=== PATIENT | female | born 1960 | race Caucasian/White ===

== ENCOUNTER 2016-03-05 09:40 | Inpatient (IN) | payer OTHER ==
[~2016-03-05] VITALS: Ht 149.9 cm; Wt 80.1 kg
[~2016-03-05 09:40] MED LIST: ADV250INH INH; ALDA25TA2 PO; K-TA10TA2 PO; KEFL500C7 PO; LACT20EL PO; LASI20TA PO; MECL-68 PO; MICA40TA PO; MOME50SP; NADO20TA PO; ONDA1TAB15 PO; PANT40TA2 PO; PATA2.5S OP; SING10TA32 PO; XIFA550T PO; ZINC220C3 PO; ZYRT10CA PO; magnesium oxide
[2016-03-05] MEDS ORDERED: ASPIRIN 81 MG CHEW TABLET As Ordered ONE (09:49)
[2016-03-05] MEDS ORDERED: ADENOSINE 6MG/2ML INJECTION (J0153) As Ordered ONE ×2 (10:05)
[2016-03-05 10:11] LABS: BASO % 0.6 % (0.0-1.0); EOS # 0.1 K/mm3 (0.0-0.50); EOS % 0.7 % (0.0-3.0); LARGE UNSTAINED CELL # 0.1 K/mm3 (0.0-0.4); LARGE UNSTAINED CELL % 1.3 % (0.0-4.0); LYMPH % 22.9 % (24.0-44.0); MEAN CORPUSCULAR HEMOGLOBIN 29.2 pg (27.0-33.0); MEAN CORPUSCULAR HGB CONC 31.8 g/dl (32.0-36.5); MEAN CORPUSCULAR VOLUME 91.8 fl (80.0-96.0); MONO # 0.2 K/mm3 (0.0-0.8); MONO % 2.5 % (0.0-5.0); NEUTROPHILS # 6.1 K/mm3 (1.8-7.7); NEUTROPHILS % 71.9 % (36.0-66.0); PLATELET COUNT, AUTOMATED 119 k/mm3 (150-450); WHITE BLOOD COUNT 8.5 K/mm3 (4.0-10.0)
[2016-03-05 10:37] LABS: ANION GAP 10 MEQ/L (8-16); BLOOD UREA NITROGEN 22 MG/DL (7-18); CALCIUM LEVEL 8.9 MG/DL (8.5-10.1); CARBON DIOXIDE LEVEL 26 MEQ/L (21-32); CHLORIDE LEVEL 106 MEQ/L (98-107); CREATININE FOR GFR 1.05 MG/DL (0.55-1.02); GLOMERULAR FILTRATION RATE 57.7 (>51); GLUCOSE, FASTING 164 MG/DL (70-105); POTASSIUM SERUM 4.4 MEQ/L (3.5-5.1); SODIUM LEVEL 142 MEQ/L (136-145)
[2016-03-05] MEDS ORDERED: NADO40TA PO (13:48)
[2016-03-05] MEDS ORDERED: PROA1AER INH (13:48)
[2016-03-05] MEDS ORDERED: PANT40TA2 PO (13:48)
[2016-03-05] MEDS ORDERED: CALC1TAB30 PO (13:48)
[2016-03-05] MEDS ORDERED: SYMB16INH INH (13:48)
[2016-03-05] MEDS ORDERED: SPIR50TA2 PO (13:49)
[2016-03-05] MEDS ORDERED: PRED5TA PO (13:49)
[2016-03-05] MEDS ORDERED: ALBUTEROL 90 MCG/ACT 8GM HFA INHALER INH PRN (14:00)
[2016-03-05] MEDS: FUROSEMIDE 20 MG TAB PO SCH (17:48)
[2016-03-05] MEDS: ENOXAPARIN 40 MG/0.4 ML SYRINGE (J1650) SC SCH (17:48)
[2016-03-05] MEDS: predniSONE 5 MG TAB PO SCH (17:48)
[2016-03-05 20:00] VITALS: BP 118/62
[2016-03-05] MEDS: SYMBICORT 160/4.5MCG INHALER 6GM INH SCH (20:00)
[2016-03-05] MEDS: rifAXIMin 550 MG TAB (XIFAXAN) PO SCH (20:27)
[2016-03-05] MEDS: MONTELUKAST 10 MG TAB PO SCH (20:28)
[2016-03-05] MEDS: NADOLOL 20MG TABLET PO SCH (20:28)
[2016-03-06] VITALS (9 sets, daily range): BP systolic 100–120; BP diastolic 59–70; PULSE 79
[2016-03-06 07:15] LABS: ANION GAP 11 MEQ/L (8-16); BLOOD UREA NITROGEN 17 MG/DL (7-18); CALCIUM LEVEL 7.8 MG/DL (8.5-10.1); CARBON DIOXIDE LEVEL 20 MEQ/L (21-32); CHLORIDE LEVEL 108 MEQ/L (98-107); GLOMERULAR FILTRATION RATE > 60.0 (>51); GLUCOSE, FASTING 113 MG/DL (70-105); POTASSIUM SERUM 4.1 MEQ/L (3.5-5.1); SODIUM LEVEL 139 MEQ/L (136-145)
[2016-03-06 07:33] LABS: MEAN CORPUSCULAR HEMOGLOBIN 29.2 pg (27.0-33.0); MEAN CORPUSCULAR HGB CONC 32.1 g/dl (32.0-36.5); MEAN CORPUSCULAR VOLUME 90.8 fl (80.0-96.0); WHITE BLOOD COUNT 4.7 K/mm3 (4.0-10.0)
[2016-03-06] MEDS: SYMBICORT 160/4.5MCG INHALER 6GM INH SCH ×2 (08:35→19:29)
[2016-03-06] MEDS ORDERED: predniSONE 5 MG TAB As Ordered ONE (08:58)
[2016-03-06] MEDS ORDERED: PANTOPRAZOLE 40MG TAB (PROTONIX) As Ordered ONE (08:58)
[2016-03-06] MEDS ORDERED: FUROSEMIDE 20 MG TAB As Ordered ONE (08:58)
[2016-03-06] MEDS: PANTOPRAZOLE 40MG TAB (PROTONIX) PO SCH (09:12)
[2016-03-06] MEDS ORDERED: ENOXAPARIN 40 MG/0.4 ML SYRINGE (J1650) As Ordered ONE (09:12)
[2016-03-06] MEDS: ENOXAPARIN 40 MG/0.4 ML SYRINGE (J1650) SC SCH (09:13)
[2016-03-06] MEDS: SPIRONOLACTONE 50 MG TAB PO SCH (09:13)
[2016-03-06] MEDS: predniSONE 5 MG TAB PO SCH (09:13)
[2016-03-06] MEDS: FUROSEMIDE 20 MG TAB PO SCH (09:13)
[2016-03-06] MEDS: rifAXIMin 550 MG TAB (XIFAXAN) PO SCH ×2 (09:13→20:30)
--- NOTE | 2016-03-06 14:48 | EDDOCDS ---
Nurse's Notes [facility] Name: France Zafar Age: 56 yrs Sex: Female : 1960 Arrival Date: 03/05/2016 Time: 09:40 Bed Admit Hold Private MD: Slava [place] [facility] [place] Diagnosis: Chest pain, unspecified Presentation: 03/05 09:48 Presenting complaint: Patient states: chest pain began around 0600. Patient states has hs1 history of heart murmur. Denies ever knowing if in A-fib. Aspirin was not taken prior to arrival. Adult Sepsis Screening: The patient does not have new or worsening altered mentation. Patient's respiratory rate is less than 22. Systolic blood pressure is greater than 100. Patient has a qSOFA score of 0- Negative Sepsis Screen. Suicide/Homicide risk assessment- the patient denies having any suicidal and/or homicidal ideations and does not present with any other emotional, behavioral or mental health complaints. Status: Patient is not a administrative services assistant or dependent. Transition of care: patient was not received from another setting of care. 09:48 Acuity: CHRISTIANNE Level 2 hs1 09:48 Method Of Arrival: Walkin/Carried/Asstd hs1 09:48 Red Flag criteria, patient assessed and taken directly to a bed. hs1 Triage Assessment: 09:50 General: Appears in no apparent distress, well nourished, well groomed, Behavior is ead appropriate for age, cooperative. Pain: Location: chest Pain currently is 7 out of 10 on a pain scale. At worst was 10 out of 10 on a pain scale. Pain: Quality of pain is described as heavy. HIV screening NA for this visit Offered previously. Neurological: Level of Consciousness is awake, alert, Oriented to person, place, time. Cardiovascular: Chest pain is described as Pain is 7 out of 10 on a pain scale. radiates Does not radiate. episodes are continuous began 4 hours prior to arrival. Cardiovascular: Reports palpitations. Respiratory: Airway is patent Respiratory effort is even, unlabored. Derm: Skin is pink, warm & dry. Historical: - Allergies: SULFA (SULFONAMIDES); - Home Meds: 1. nadolol 40 mg oral tab 1 tab once daily (Last dose: 03/04/2016 21:00) 2. furosemide 20 mg Oral tab 1 tab once daily 3. rifaximin 550 mg oral tab 1 tab 2 times per day 4. montelukast 10 mg oral tab 1 tab once daily 5. spironolactone 25 mg Oral tab 1 tab once daily 6. Symbicort 160-4.5 mcg/actuation inhalation HFAA 2 puffs 2 times per day 7. pantoprazole 40 mg oral grps 1 packet once daily 8. ProAir HFA 90 mcg/actuation inhalation HFAA 1 puff every 4 hours 9. prednisone 20 mg Oral tab once daily 10. azathioprine 50 mg Oral tab once daily - PMHx: espohageal varicies; GERD; Asthma; Hepatitis C; - PSHx: Tubal ligation; 5 liver biopsies; Tonsillectomy; parencetesis; - Social history: Smoking status: Patient states was never smoker of tobacco. No barriers to communication noted, The patient speaks fluent Lao, Speaks appropriately for age, Smoking status: . - Family history: Not pertinent. - : The pt / caregiver states he / she is not on anticoagulants. Home medication list is obtained from the patient, family members. - Exposure Risk Screening:: None identified. Assessment: 10:20 Reassessment: Patient states feeling better. Patient states symptoms have improved. ead General: Appears in no apparent distress, comfortable, Behavior is appropriate for age, cooperative. Pain: Pain currently is 2 out of 10 on a pain scale. Cardiovascular: Rhythm is regular Denies palpitations. Derm: Skin is pink, warm & dry. 11:30 General: Appears in no apparent distress, comfortable, Behavior is appropriate for age, ead cooperative, pleasant. Pain: Denies pain. Neurological: No deficits noted. Neurological: Denies dizziness. Cardiovascular: Capillary refill < 3 seconds Rhythm is sinus rhythm Chest pain is denied. Cardiovascular: Denies palpitations. Respiratory: Denies shortness of breath. Derm: Skin is pink, warm & dry. 12:30 General: Appears in no apparent distress, comfortable, Behavior is appropriate for age, ead cooperative, pleasant. Respiratory: Airway is patent Respiratory effort is even, unlabored. Derm: Skin is pink, warm & dry. 13:30 General: Appears in no apparent distress, to be sleeping. Cardiovascular: Rhythm is ead sinus rhythm. Respiratory: Airway is patent Respiratory effort is even, unlabored. 14:38 General: Appears in no apparent distress, comfortable, Behavior is appropriate for age, ead cooperative, pt ambulated to bathroom without difficulty. updated of bed status for hospitalization. . Pain: Denies pain. Cardiovascular: Rhythm is sinus rhythm. Respiratory: Airway is patent Respiratory effort is even, unlabored. Derm: Skin is pink, warm & dry. 16:00 General: Appears in no apparent distress, comfortable, Behavior is appropriate for age, ead cooperative. Neurological: No deficits noted. Cardiovascular: Rhythm is sinus rhythm. Respiratory: Airway is patent Respiratory effort is even, unlabored. Derm: Skin is pink, warm & dry. 17:50 General: Appears in no apparent distress, Behavior is appropriate for age, cooperative. pml Pain: Denies pain. Neurological: Level of Consciousness is awake, alert, Oriented to person, place, time. Cardiovascular: Capillary refill < 3 seconds Rhythm is sinus rhythm No ectopy. Respiratory: Airway is patent Respiratory effort is even, unlabored. GI: Abdomen is non- distended obese. Derm: Skin is pink, warm & dry. Vital Signs: 09:44 BP 84 / 65; Pulse 148; Resp 22; Pulse Ox 92% on R/A; Weight 78.93 kg (R); Height 4 ft. elp 11 in. (149.86 cm) (R); 10:10 BP 93 / 63 (auto/); ead 10:10 Pulse 144 MON; Resp 16; Pulse Ox 95% on R/A; ead 10:13 Pulse 144 MON; Pulse Ox 96% ; ead 10:14 BP 94 / 61 (auto/); ead 10:14 Pulse 144 MON; Pulse Ox 97% ; ead 10:15 Pulse 87 MON; Pulse Ox 98% ; ead 10:16 Pulse 83 MON; Pulse Ox 98% ; ead 11:16 Pulse 76 MON; Resp 16; Pulse Ox 96% on R/A; ead 11:37 Pulse 72 MON; Pulse Ox 95% ; ead 11:40 BP 112 / 70 (auto/); ead 11:40 Pulse 72 MON; Pulse Ox 94% ; ead 12:00 BP 109 / 64 (auto/); ead 12:00 Pulse 72 MON; Pulse Ox 96% ; ead 12:20 BP 119 / 65 (auto/); ead 12:20 Pulse 72 MON; Pulse Ox 95% ; ead 13:02 Pulse 71 MON; Pulse Ox 97% ; ead 13:32 Pulse 71 MON; Pulse Ox 96% ; ead 13:56 Pulse 70 MON; Pulse Ox 96% ; ead 14:33 BP 139 / 60 (auto/); ead 14:37 Pulse 72 MON; Pulse Ox 97% ; ead 15:00 BP 118 / 67 (auto/); ead 15:00 Pulse Ox 95% ; ead 15:30 BP 90 / 54 (auto/); ead 15:30 Pulse 80 MON; Resp 18; Pulse Ox 96% on R/A; ead 15:34 BP 90 / 53 (auto/); ead 15:34 Pulse Ox 95% ; ead 15:45 BP 99 / 62 (auto/); ead 15:45 Pulse 74 MON; Pulse Ox 95% ; ead 16:00 BP 103 / 53 (auto/); ead 16:02 Pulse 75 MON; Resp 16; Pulse Ox 95% on R/A; ead 16:15 BP 107 / 58 (auto/); dls 16:15 Pulse 73 MON; Pulse Ox 95% ; dls 16:30 BP 111 / 56 (auto/); dls 16:30 Pulse 73 MON; Pulse Ox 95% ; dls 16:45 BP 105 / 58 (auto/); dls 16:45 Pulse 71 MON; Pulse Ox 96% ; dls 17:42 BP 110 / 59 (auto/); pml 17:44 Pulse 70 MON; Pulse Ox 95% ; pml 09:44 Body Mass Index 35.14 (78.93 kg, 149.86 cm) elp Vitals: 09:44 Log In Time: March 05, 2016 at 09:42. RN notified that patient meets Red Flag elp criteria. ED Course: 09:43 Patient visited by Evette Fink PCA. elp 09:43 Patient moved to Waiting elp 09:44 Brook Vasquez,LUDWIN is Primary Nurse. elp 09:44 MICHAEL Pedersen is Private Physician. elp 09:44 Patient visited by Evette Fink PCA. elp 09:44 Patient moved to 3 elp 09:45 Chey Keene MD is Attending Physician. fg 09:45 Patient visited by Chey Keene MD. fg 09:49 Triage Initiated hs1 09:54 EKG done. (by ED staff). Reviewed by Chey Keene MD. rn1 10:03 B-Type Natiuretic Peptide Sent. ead 10:03 Troponin Sent. ead 10:03 Cardiac Injury Profile Sent. ead 10:03 CBC with Diff Sent. ead 10:03 Basic Metabolic Profile Sent. ead 10:13 [facility] Payment Agreement was scanned into [employer] and attached to record. lg 10:17 EKG done. (by ED staff). Reviewed by Chey Keene MD. jrd 10:26 Patient visited by Brook Vasquez,RN. ead 11:38 Patient visited by Brook Vasquez,RN. ead 12:12 EKG done. (by ED staff). Reviewed by Chey Keene MD. rn1 12:24 Patient visited by Brook Vasquez,LUDWIN. ead 12:33 Patient visited by Brook Vasquez,LUDWIN. ead 12:33 Troponin Sent. ead 12:33 Cardiac Injury Profile Sent. ead 13:30 Prachi Devi is Hospitalizing Provider. fg 16:55 Patient moved to 19 dls 17:44 T-Sheet-- Draft Copy was scanned into [employer] and attached to record. klr 17:52 Patient visited by Massiel Moon,LUDWIN. pml 19:15 Patient moved to Admit Hold [facility]1 03/06 02:54 Primary Nurse role handed off by Brook Vasquez,LUDWIN parker 12:49 Patient visited by Liz Granados PCA. bnb 12:49 Diet: Patient given regular meal. Tolerated well. bnb Administered Medications: 03/05 10:12 Drug: Adenosine 6 mg [adenosine 3 mg/mL intravenous solution (2 mL)] Route: IVP; Site: ead right antecubital; 10:15 Follow up: Response: Cardiac Rhythm changed; No Adverse Reaction ead 10:19 Drug: NS 0.9% 1000 ml [sodium chloride 0.9 % intravenous solution] Route: IV; Rate: ead bolus; Site: right antecubital; 10:21 Not Given (Patient Refused): Aspirin Chewable Tablet 324 mg PO once ead 10:22 Not Given (pt responded to first dose, second dose not needed): Adenosine 12 mg IVP onceead Order Results: Lab Order: B-Type Natiuretic Peptide; SPEC'M 03/05/16 10:00 Test: BRAIN NATRIURETIC PEPTIDE; Value: 56.4; Range: <100; Units: PG/ML; Status: F Lab Order: Basic Metabolic Profile; SPEC'03/05/16 09:59 Test: GLUCOSE, FASTING; Value: 164; Range: 70-105; Abnormal: Above high normal; Units: MG/DL; Status: F Test: BLOOD UREA NITROGEN; Value: 22; Range: 7-18; Abnormal: Above high normal; Units: MG/DL; Status: F Test: CREATININE FOR GFR; Value: 1.05; Range: 0.55-1.02; Abnormal: Above high normal; Units: MG/DL; Status: F Test: GLOMERULAR FILTRATION RATE; Value: 57.7; Range: >51; Status: F Test: SODIUM LEVEL; Value: 142; Range: 136-145; Units: MEQ/L; Status: F Test: POTASSIUM SERUM; Value: 4.4; Range: 3.5-5.1; Units: MEQ/L; Status: F Test: CHLORIDE LEVEL; Value: 106; Range: 98-107; Units: MEQ/L; Status: F Test: CARBON DIOXIDE LEVEL; Value: 26; Range: 21-32; Units: MEQ/L; Status: F Test: ANION GAP; Value: 10; Range: 8-16; Units: MEQ/L; Status: F Test: CALCIUM LEVEL; Value: 8.9; Range: 8.5-10.1; Units: MG/DL; Status: F Test Note: ; Units are mL/min/1.73 m2 Chronic Kidney Disease Staging per NKF: Stage I & II GFR >=60 Normal to Mildly Decreased Stage III GFR 30-59 Moderately Decreased Stage IV GFR 15-29 Severely Decreased Stage V GFR <15 Very Little GFR Left ESRD GFR <15 on BREWERY [employer]ER Lab Order: CBC with Diff; SPEC'03/05/16 10:00 Test: WHITE BLOOD COUNT; Value: 8.5; Range: 4.0-10.0; Units: K/mm3; Status: F Test: RED BLOOD COUNT; Value: 3.90; Range: 4.00-5.40; Abnormal: Below low normal; Units: M/mm3; Status: F Test: HEMOGLOBIN; Value: 11.4; Range: 12.0-16.0; Abnormal: Below low normal; Units: g/dl; Status: F Test: HEMATOCRIT; Value: 35.8; Range: 36.0-47.0; Abnormal: Below low normal; Units: %; Status: F Test: MEAN CORPUSCULAR VOLUME; Value: 91.8; Range: 80.0-96.0; Units: fl; Status: F Test: MEAN CORPUSCULAR HEMOGLOBIN; Value: 29.2; Range: 27.0-33.0; Units: pg; Status: F Test: MEAN CORPUSCULAR HGB CONC; Value: 31.8; Range: 32.0-36.5; Abnormal: Below low normal; Units: g/dl; Status: F Test: RED CELL DISTRIBUTION WIDTH; Value: 21.0; Range: 11.5-14.5; Abnormal: Above high normal; Units: %; Status: F Test: PLATELET COUNT, AUTOMATED; Value: 119; Range: 150-450; Abnormal: Below low normal; Units: k/mm3; Status: F Test: NEUTROPHILS %; Value: 71.9; Range: 36.0-66.0; Abnormal: Above high normal; Units: %; Status: F Test: LYMPH %; Value: 22.9; Range: 24.0-44.0; Abnormal: Below low normal; Units: %; Status: F Test: MONO %; Value: 2.5; Range: 0.0-5.0; Units: %; Status: F Test: EOS %; Value: 0.7; Range: 0.0-3.0; Units: %; Status: F Test: BASO %; Value: 0.6; Range: 0.0-1.0; Units: %; Status: F Test: LARGE UNSTAINED CELL %; Value: 1.3; Range: 0.0-4.0; Units: %; Status: F Test: NEUTROPHILS #; Value: 6.1; Range: 1.8-7.7; Units: K/mm3; Status: F Test: LYMPH #; Value: 2.0; Range: 1.5-4.5; Units: K/mm3; Status: F Test: MONO #; Value: 0.2; Range: 0.0-0.8; Units: K/mm3; Status: F Test: EOS #; Value: 0.1; Range: 0.0-0.50; Units: K/mm3; Status: F Test: BASO #; Value: 0.0; Range: 0.0-0.2; Units: K/mm3; Status: F Test: LARGE UNSTAINED CELL #; Value: 0.1; Range: 0.0-0.4; Units: K/mm3; Status: F Lab Order: Cardiac Injury Profile; [facility] 03/05/16 09:59 Test: CPK CREATINE PHOSPHOKINASE; Value: 96; Range: 26-192; Units: U/L; Status: F Test: CK-MB VALUE MASS; Value: 1.2; Range: 0.0-3.6; Units: NG/ML; Status: F Test: MB/CK RELATIVE INDEX; Value: 1.25; Range: < OR =4; Status: F Test Note: ; DIAGNOSIS CRITERIA MMB ng/ml Relative Index (RI) NON-AMI < or = 5 N/A RIOJAS ZONE > 5 < or = 4 AMI > 5 > 4 Lab Order: Troponin; [facility] 03/05/16 09:59 Test: TROPONIN I; Value: < 0.02; Range: < 0.10; Units: NG/ML; Status: F Test Note: ; Troponin I Reference Interval for [place] LOCI: 99th Percentile= 0.00-0.045 ng/ml Risk Stratification: <= 0.10 ng/ml Decreased Risk for Adverse Clinical Events. 0.10-1.50 ng/ml Increased Risk for Adverse Clinical Events. Evaluation of additional criterion and/or repeat testing in 2-6 hours is suggested to rule out myocardial damage. >= 1.50 ng/ml Indicative of Myocardial Injury. Lab Order: Cardiac Injury Profile; [facility]' 03/05/16 12:31 Test: CPK CREATINE PHOSPHOKINASE; Value: 61; Range: 26-192; Units: U/L; Status: F Test: CK-MB VALUE MASS; Value: 1.0; Range: 0.0-3.6; Units: NG/ML; Status: F Test: MB/CK RELATIVE INDEX; Value: 1.63; Range: < OR =4; Status: F Test Note: ; DIAGNOSIS CRITERIA MMB ng/ml Relative Index (RI) NON-AMI < or = 5 N/A RIOJAS ZONE > 5 < or = 4 AMI > 5 > 4 Lab Order: Troponin; SPEC' 03/05/16 12:31 Test: TROPONIN I; Value: 0.15; Range: < 0.10; Abnormal: High; Units: NG/ML; Status: F Test Note: ; Troponin I Reference Interval for [employer]: 99th Percentile= 0.00-0.045 ng/ml Risk Stratification: <= 0.10 ng/ml Decreased Risk for Adverse Clinical Events. 0.10-1.50 ng/ml Increased Risk for Adverse Clinical Events. Evaluation of additional criterion and/or repeat testing in 2-6 hours is suggested to rule out myocardial damage. >= 1.50 ng/ml Indicative of Myocardial Injury. Lab Order: THYROID STIMULATING HORMONE; SPEC'M 03/05/16 12:31 Test: THYROID STIMULATING HORMONE; Value: 2.240; Range: 0.358-3.740; Units: uIU/ML; Status: F Lab Order: TROPONIN; [facility] 03/05/16 18:57 Test: TROPONIN I; Value: 0.30; Range: < 0.10; Abnormal: High; Units: NG/ML; Status: F Test Note: ; Troponin I Reference Interval for [employer]: 99th Percentile= 0.00-0.045 ng/ml Risk Stratification: <= 0.10 ng/ml Decreased Risk for Adverse Clinical Events. 0.10-1.50 ng/ml Increased Risk for Adverse Clinical Events. Evaluation of additional criterion and/or repeat testing in 2-6 hours is suggested to rule out myocardial damage. >= 1.50 ng/ml Indicative of Myocardial Injury. Lab Order: TROPONIN; SPEC'M 03/06/16 00:12 Test: TROPONIN I; Value: 0.26; Range: < 0.10; Abnormal: Above high normal; Units: NG/ML; Status: F Test Note: ; Troponin I Reference Interval for [employer]: 99th Percentile= 0.00-0.045 ng/ml Risk Stratification: <= 0.10 ng/ml Decreased Risk for Adverse Clinical Events. 0.10-1.50 ng/ml Increased Risk for Adverse Clinical Events. Evaluation of additional criterion and/or repeat testing in 2-6 hours is suggested to rule out myocardial damage. >= 1.50 ng/ml Indicative of Myocardial Injury. Lab Order: COMPLETE BLOOD COUNT; SPEC'M 03/06/16 05:35 Test: WHITE BLOOD COUNT; Value: 4.7; Range: 4.0-10.0; Units: K/mm3; Status: F Test: RED BLOOD COUNT; Value: 3.02; Range: 4.00-5.40; Abnormal: Below low normal; Units: M/mm3; Status: F Test: HEMOGLOBIN; Value: 8.8; Range: 12.0-16.0; Units: g/dl; Status: F Test: HEMATOCRIT; Value: 27.4; Range: 36.0-47.0; Abnormal: Below low normal; Units: %; Status: F Test: MEAN CORPUSCULAR VOLUME; Value: 90.8; Range: 80.0-96.0; Units: fl; Status: F Test: MEAN CORPUSCULAR HEMOGLOBIN; Value: 29.2; Range: 27.0-33.0; Units: pg; Status: F Test: MEAN CORPUSCULAR HGB CONC; Value: 32.1; Range: 32.0-36.5; Units: g/dl; Status: F Test: RED CELL DISTRIBUTION WIDTH; Value: 21.0; Range: 11.5-14.5; Abnormal: Above high normal; Units: %; Status: F Test: PLATELET COUNT, AUTOMATED; Value: 73; Range: 150-450; Abnormal: Below low normal; Units: k/mm3; Status: F Lab Order: CARDIAC MARKER PANEL; SPEC'M 03/06/16 05:35 Test: CPK CREATINE PHOSPHOKINASE; Value: 67; Range: 26-192; Units: U/L; Status: F Test: CK-MB VALUE MASS; Value: 1.1; Range: 0.0-3.6; Units: NG/ML; Status: F Test: MB/CK RELATIVE INDEX; Value: 1.64; Range: < OR =4; Status: F Test: TROPONIN I; Value: 0.18; Range: < 0.10; Abnormal: High; Units: NG/ML; Status: F Test Note: ; DIAGNOSIS CRITERIA MMB ng/ml Relative Index (RI) NON-AMI < or = 5 N/A RIOJAS ZONE > 5 < or = 4 AMI > 5 > 4 Lab Order: BASIC METABOLIC PROFILE; [facility]' 03/06/16 05:35 Test: GLUCOSE, FASTING; Value: 113; Range: 70-105; Abnormal: Above high normal; Units: MG/DL; Status: F Test: BLOOD UREA NITROGEN; Value: 17; Range: 7-18; Units: MG/DL; Status: F Test: CREATININE FOR GFR; Value: 0.70; Range: 0.55-1.02; Units: MG/DL; Status: F Test: SODIUM LEVEL; Range: 136-145; Units: MEQ/L; Status: I Test: POTASSIUM SERUM; Range: 3.5-5.1; Units: MEQ/L; Status: I Test: CHLORIDE LEVEL; Range: 98-107; Units: MEQ/L; Status: I Test: CARBON DIOXIDE LEVEL; Range: 21-32; Units: MEQ/L; Status: I Test: ANION GAP; Range: 8-16; Units: MEQ/L; Status: I Test: CALCIUM LEVEL; Range: 8.5-10.1; Units: MG/DL; Status: I Test: GLOMERULAR FILTRATION RATE; Value: > 60.0; Range: >51; Status: F Test: SODIUM LEVEL; Value: 139; Range: 136-145; Units: MEQ/L; Status: F Test: POTASSIUM SERUM; Value: 4.1; Range: 3.5-5.1; Units: MEQ/L; Status: F Test: CHLORIDE LEVEL; Value: 108; Range: 98-107; Abnormal: Above high normal; Units: MEQ/L; Status: F Test: CARBON DIOXIDE LEVEL; Value: 20; Range: 21-32; Abnormal: Below low normal; Units: MEQ/L; Status: F Test: ANION GAP; Value: 11; Range: 8-16; Units: MEQ/L; Status: F Test: CALCIUM LEVEL; Value: 7.8; Range: 8.5-10.1; Abnormal: Below low normal; Units: MG/DL; Status: F Test Note: ; Units are mL/min/1.73 m2 Chronic Kidney Disease Staging per NKF: Stage I & II GFR >=60 Normal to Mildly Decreased Stage III GFR 30-59 Moderately Decreased Stage IV GFR 15-29 Severely Decreased Stage V GFR <15 Very Little GFR Left ESRD GFR <15 on [employer] Outcome: 13:30 Decision to Hospitalize by Provider. fg 03/06 14:46 Patient left the ED. [facility] Signatures: Jesús Truong, RN RN Laura Gamez, RN RN Noah Deutsch, Reg Reg lg Pat Lucero RN RN hs1 Mian, Patsy, RN RN [id number] Massiel Moon,RN RN Evette Giron, SURGICAL SERVICES DIRECTOR SURGICAL SERVICES DIRECTOR Colton Kaur RN RN jmb Dunaway, EmilyRN RN Kelechi Jurado, SURGICAL SERVICES DIRECTOR SURGICAL SERVICES DIRECTOR Ozzie Bourne rn1 Chey Keene MD MD fg Redder, Kathie klr Becker, Brittney, SURGICAL SERVICES DIRECTOR SURGICAL SERVICES DIRECTOR ursula MTDKena
--- NOTE | 2016-03-06 14:48 | EDDOCDS ---
Physician Documentation [facility] Name: France Zafar Age: 56 yrs Sex: Female : 1960 Arrival Date: 03/05/2016 Time: 09:40 Bed Admit Hold Private MD: Salva [facility] Disposition: 03/05/16 13:30 Hospitalization ordered by Prachi Devi for Inpatient Admission. Preliminary diagnosis is Chest pain, unspecified. - Bed requested for PCU. - Status is Inpatient Admission. bcj - Condition is Stable. - Problem is new. - Symptoms have improved. Historical: - Allergies: SULFA (SULFONAMIDES); - Home Meds: 1. nadolol 40 mg oral tab 1 tab once daily (Last dose: 03/04/2016 21:00) 2. furosemide 20 mg Oral tab 1 tab once daily 3. rifaximin 550 mg oral tab 1 tab 2 times per day 4. montelukast 10 mg oral tab 1 tab once daily 5. spironolactone 25 mg Oral tab 1 tab once daily 6. Symbicort 160-4.5 mcg/actuation inhalation HFAA 2 puffs 2 times per day 7. pantoprazole 40 mg oral grps 1 packet once daily 8. ProAir HFA 90 mcg/actuation inhalation HFAA 1 puff every 4 hours 9. prednisone 20 mg Oral tab once daily 10. azathioprine 50 mg Oral tab once daily - PMHx: espohageal varicies; GERD; Asthma; Hepatitis C; - PSHx: Tubal ligation; 5 liver biopsies; Tonsillectomy; parencetesis; - Social history: Smoking status: Patient states was never smoker of tobacco. No barriers to communication noted, The patient speaks fluent [place]itanian, Speaks appropriately for age, Smoking status: . - Family history: Not pertinent. - : The pt / caregiver states he / she is not on anticoagulants. Home medication list is obtained from the patient, family members. - Exposure Risk Screening:: None identified. Vital Signs: 03/05 09:44 BP 84 / 65; Pulse 148; Resp 22; Pulse Ox 92% on R/A; Weight 78.93 kg / 174.01 lbs (R); elp Height 4 ft. 11 in. (149.86 cm) (R); 10:10 BP 93 / 63 (auto/); ead 10:10 Pulse 144 MON; Resp 16; Pulse Ox 95% on R/A; ead 10:13 Pulse 144 MON; Pulse Ox 96% ; ead 10:14 BP 94 / 61 (auto/); ead 10:14 Pulse 144 MON; Pulse Ox 97% ; ead 10:15 Pulse 87 MON; Pulse Ox 98% ; ead 10:16 Pulse 83 MON; Pulse Ox 98% ; ead 11:16 Pulse 76 MON; Resp 16; Pulse Ox 96% on R/A; ead 11:37 Pulse 72 MON; Pulse Ox 95% ; ead 11:40 BP 112 / 70 (auto/); ead 11:40 Pulse 72 MON; Pulse Ox 94% ; ead 12:00 BP 109 / 64 (auto/); ead 12:00 Pulse 72 MON; Pulse Ox 96% ; ead 12:20 BP 119 / 65 (auto/); ead 12:20 Pulse 72 MON; Pulse Ox 95% ; ead 13:02 Pulse 71 MON; Pulse Ox 97% ; ead 13:32 Pulse 71 MON; Pulse Ox 96% ; ead 13:56 Pulse 70 MON; Pulse Ox 96% ; ead 14:33 BP 139 / 60 (auto/); ead 14:37 Pulse 72 MON; Pulse Ox 97% ; ead 15:00 BP 118 / 67 (auto/); ead 15:00 Pulse Ox 95% ; ead 15:30 BP 90 / 54 (auto/); ead 15:30 Pulse 80 MON; Resp 18; Pulse Ox 96% on R/A; ead 15:34 BP 90 / 53 (auto/); ead 15:34 Pulse Ox 95% ; ead 15:45 BP 99 / 62 (auto/); ead 15:45 Pulse 74 MON; Pulse Ox 95% ; ead 16:00 BP 103 / 53 (auto/); ead 16:02 Pulse 75 MON; Resp 16; Pulse Ox 95% on R/A; ead 16:15 BP 107 / 58 (auto/); dls 16:15 Pulse 73 MON; Pulse Ox 95% ; dls 16:30 BP 111 / 56 (auto/); dls 16:30 Pulse 73 MON; Pulse Ox 95% ; dls 16:45 BP 105 / 58 (auto/); dls 16:45 Pulse 71 MON; Pulse Ox 96% ; dls 17:42 BP 110 / 59 (auto/); pml 17:44 Pulse 70 MON; Pulse Ox 95% ; pml 09:44 Body Mass Index 35.14 (78.93 kg, 149.86 cm) elp MDM: 09:44 ECG WITH READING ER PHYS+CARDIAG ordered. EDMS 09:46 Aspirin Chewable Tablet 324 mg PO once ordered. fg 09:46 Plywood Layup Line Core Layer/Pulse Ox/q 30 min VS ordered. fg 09:46 IV Saline Lock ordered. fg 09:46 Rhythm Strip to chart ordered. fg 09:46 Undress patient appropriately for examination ordered. fg 09:47 B-Type Natiuretic Peptide Ordered. EDMS 09:47 Basic Metabolic Profile Ordered. EDMS 09:47 CBC with Diff Ordered. EDMS 09:48 Cardiac Injury Profile Ordered. EDMS 09:48 Troponin Ordered. EDMS 09:48 portable chest Ordered. EDMS 10:03 Adenosine 6 mg IVP once ordered. fg 10:03 Adenosine 12 mg IVP once ordered. fg 10:03 NS 0.9% 1000 ml IV at bolus once ordered. fg 10:04 Misc. Nursing Order ordered. fg 10:08 Financial registration complete. lg 10:10 ECG WITH READING ER PHYS+CARDIAG ordered. EDMS 10:13 [facility] Payment Agreement was scanned into [employer] and attached to record. lg 12:03 Cardiac Injury Profile Ordered. EDMS 12:03 Troponin Ordered. EDMS 12:04 ECG WITH READING ER PHYS+CARDIAG ordered. EDMS 13:31 BED REQUEST+ADM ordered. EDMS 13:55 Admission / Observation Status ordered. EDMS 13:55 ECHOCARD,DOPPLER/COLOR FLOW ordered. EDMS 13:56 2 GRAM SODIUM DIET ordered. EDMS 13:57 THYROID STIMULATING HORMONE Ordered. EDMS 13:57 TROPONIN Ordered. EDMS 17:44 T-Sheet-- Draft Copy was scanned into [facility] [employer] [facility] and attached to record. klr 19:32 TROPONIN Ordered. EDMS 20:02 ELECTROCARDIOGRAM ADULT ordered. EDMS 03/06 07:00 COMPLETE BLOOD COUNT Ordered. EDMS 07:03 CARDIAC MARKER PANEL Ordered. EDMS 07:03 BASIC METABOLIC PROFILE Ordered. EDMS 13:38 CBC WITH DIFFERENTIAL Ordered. EDMS Administered Medications: 03/05 10:12 Drug: Adenosine 6 mg [adenosine 3 mg/mL intravenous solution (2 mL)] Route: IVP; Site: ead right antecubital; 10:15 Follow up: Response: Cardiac Rhythm changed; No Adverse Reaction ead 10:19 Drug: NS 0.9% 1000 ml [sodium chloride 0.9 % intravenous solution] Route: IV; Rate: ead bolus; Site: right antecubital; 10:21 Not Given (Patient Refused): Aspirin Chewable Tablet 324 mg PO once ead 10:22 Not Given (pt responded to first dose, second dose not needed): Adenosine 12 mg IVP onceead Signatures: Dispatcher [employer] EDJesús Tyson, RN RN Noah Manzo, Reg Reg lg Pat Lucero RN RN hs1 Brook VasquezRN Jomar Morales RN RN mts Gill, Frances, MD MD fg Redder, Kathie klr The chart was reviewed and I authenticate all verbal orders and agree with the evaluation and treatment provided.Corrections: (The following items were deleted from the chart) 03/06 07:04 03/05 19:54 TROPONIN ordered. EDMS EDMS 03/06 07:04 07:00 CARDIAC MARKER PANEL ordered. EDMS EDMS 07: 07:00 BASIC METABOLIC PROFILE ordered. EDNH EDMS : 03/05 10:13 [facility] Payment Agreement lg 17:44 T-Sheet-- Draft Copy nupur MTDD
--- NOTE | 2016-03-06 15:33 | ECGEPIP ---
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
--- NOTE | 2016-03-06 15:34 | ECGEPIP ---
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
--- NOTE | 2016-03-06 15:36 | ECGEPIP ---
Stationary ECG Study [facility] - ED Test Date: 2016-03-05 Pat Name: ALEXANDRIA ROSA Department: Room: - Gender: F Staff Nurse Anesthetist: rn : 1960 Requested By: SHAW Rios Order Number: [id number] Reading MD: Ronna Mendoza Measurements Intervals [place] Rate: 71 P: 33 CO: 142 QRS: -20 QRSD: 85 T: 8 QT: 398 QTc: 434 Interpretive Statements SINUS RHYTHM VOLTAGE CRITERIA FOR LVH NSTTW ABNORMALITY DECREASED RATE 10:12 Electronically Signed On 03-06-2016 15:36:08 EST by Ronna Mendoza
[2016-03-06 17:38] LABS: BASO % 0.5 % (0.0-1.0); EOS % 0.2 % (0.0-3.0); LARGE UNSTAINED CELL # 0.1 K/mm3 (0.0-0.4); LARGE UNSTAINED CELL % 1.8 % (0.0-4.0); LYMPH % 17.1 % (24.0-44.0); MEAN CORPUSCULAR HEMOGLOBIN 28.7 pg (27.0-33.0); MEAN CORPUSCULAR HGB CONC 31.7 g/dl (32.0-36.5); MEAN CORPUSCULAR VOLUME 90.4 fl (80.0-96.0); MONO # 0.2 K/mm3 (0.0-0.8); MONO % 2.9 % (0.0-5.0); NEUTROPHILS # 4.1 K/mm3 (1.8-7.7); NEUTROPHILS % 77.5 % (36.0-66.0); RED CELL DISTRIBUTION WIDTH 21.3 % (11.5-14.5); WHITE BLOOD COUNT 5.3 K/mm3 (4.0-10.0)
[2016-03-06 19:07] LABS: PLATELET COUNT, AUTOMATED 78 k/mm3 (150-450)
[2016-03-06] MEDS: MONTELUKAST 10 MG TAB PO SCH (20:30)
[2016-03-06] MEDS: NADOLOL 20MG TABLET PO SCH (20:32)
[2016-03-07] VITALS (8 sets, daily range): BP systolic 88–110; BP diastolic 55–70; PULSE 68
--- NOTE | 2016-03-07 01:20 | ECGEPIP ---
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 No significant changes Electronically Signed On 03-07-2016 1:19:27 EST by Chris Nobles
[2016-03-07] MEDS: SYMBICORT 160/4.5MCG INHALER 6GM INH SCH (08:16)
--- NOTE | 2016-03-07 08:30 | REP ---
Andrade Hough portable chest, 03/05/2016, 11/2006, single AP view the patient sitting: Comparisons 04/06/2014. I suspect there is focal discoid atelectasis inferiorly in the left lung. Lung chowdary are otherwise clear. Cardiac size is magnified by portable positioning. The jt, mediastinum, bony thorax are unremarkable. Impression: Discoid atelectasis in the left lower lobe, otherwise negative portable chest. Signed by Drake Craig MD 03/05/2016 10:16 A
--- NOTE | 2016-03-07 08:31 | HPE ---
DATE OF ADMISSION: 03/05/2016 PRIMARY CARE PROVIDER: Dr. Eliceo Mcdowell TEST PULLER: [facility] TRANSPLANT SURGEON: Ashlee CHIEF COMPLAINT: Palpitations. HISTORY OF PRESENT ILLNESS: The patient is a 56-year-old female who is lying awake in bed this morning at 6:00 a.m. when she had the sudden onset of feeling her heart racing out of her chest. She did have shortness of breath associated with it. This was approximately at 6:00 a.m. She tried to take deep breaths, relax and hoping that it would calm down. She has never experienced these symptoms before. Her symptoms did not calm down, which prompted her to present to the emergency room. She did not have associated chest pressure, lightheadedness, dizziness, diaphoresis, epigastric discomfort. In the emergency room, she was found to be in supraventricular tachycardia (SVT) and was given one dose of adenosine and her symptoms did resolve following this. She denied any further symptoms. At the present time, when I examined her in the emergency room, she tells me that she feels completely back to normal and has no complaints whatsoever. PAST MEDICAL HISTORY: 1. Autoimmune hepatitis, hepatitis C. Status post treatment. 2. Esophageal varices. 3. 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 4. Gastroesophageal reflux disease (GERD). 5. Asthma. 6. Hypertension. ALLERGIES: SULFA DRUGS. HOME MEDICATIONS: - nadolol 40 mg at night - Lasix 20 mg daily - rifaximine 550 mg twice a day - Singulair 10 mg daily - aldactone 25 mg daily - Symbicort 150/4.5 inhaled twice a day - Protonix 40 mg daily - ProAir HFA 90 mcg inhaled every four hours as needed for shortness of breath - prednisone 15 mg daily PAST SURGICAL HISTORY: 1. Tubal ligation. 2. Five liver biopsies. 3. Tonsillectomy. 4. Paracentesis. SOCIAL HISTORY: The patient is a never smoker. She denies alcohol or illicit drugs. She lives with her daughter. FAMILY HISTORY: Noncontributory. REVIEW OF SYSTEMS: Negative other than history of present illness. PHYSICAL EXAMINATION: At the time of arrival, her blood pressure was 84/65 with a pulse of 146. Following adenosine, pulse slowed to 72. Appears to be in a sinus rhythm. Blood pressure 119/55. Respiratory rate 16. Temperature is afebrile. Oxygen saturation 95% on room air. GENERAL: She is a very pleasant, obese female lying on a stretcher at a 60 degree angle. She appears comfortable and in no distress. She is very pleasant. She is accompanied by her daughter. HEENT: Cranial nerves II through XII are grossly intact. She has moist mucous membranes. No elevation of central venous pressure. CARDIOVASCULAR EXAM: S1, S2. Regular rate and rhythm at the present time. RESPIRATORY EXAM: Clear. ABDOMINAL EXAM: Benign. EXTREMITIES: No clubbing, cyanosis or edema. SKIN: She has a tattoo on her right chest. LABORATORY STUDIES: WBC 8.5, hemoglobin 11.4, hematocrit 35.8, platelet count is 119. Chemistry panel: Sodium 142, potassium 4.4, chloride 106, bicarbonate 26, BUN 22, creatinine 1.0. Troponin at 10:00 a.m. was 0.2 and 2-1/2 hours later it was 0.15. BNP 56.4. The patient did have a chest x-ray completed and my read does not reveal any acute infiltrate. No gross abnormality. ASSESSMENT AND PLAN: This is a 56-year-old female with SVT, new onset, resolved with adenosine. 1. SVT. The patient has never experienced these symptoms in the past. We will check a TSH and echocardiogram. Admit her to the progressive care unit (PCU) and continue to trend her cardiac enzymes. I suspect that she has experienced mild type 2 demand ischemia related to her rapid ventricular rate. We will monitor and see if she has any recurrence of her symptoms. Given that she has asthma, if she has recurrence of her symptoms, we will attempt vasovagal maneuvers first. Failing this, she has tolerated adenosine quite well without it affecting her respiratory status. If she were to go into SVT once again, we will recheck and EKG as well and consult cardiology. At this time, I think she would benefit from an outpatient referral to cardiology with stress test given her mild troponinemia. 2. Liver cirrhosis, likely secondary to autoimmune hepatitis with a contributing factor of hepatitis C. She has had treatment for hepatitis C. She is on prednisone 15 mg daily, as well as nadolol, Lasix, rifaximine, aldactone. The patient has a history of varices. 3. Asthma. The patient is on Singulair and ProAir. 4. Gastroesophageal reflux disease (GERD). The patient is on Protonix. 5. Deep vein thrombosis (DVT) prophylaxis. The patient will be on Lovenox. DISPOSITION: The patient is admitted to the progressive care unit to Dr. Ken's service, who will continue following the patient tomorrow at 7:00 a.m.
--- NOTE | 2016-03-07 08:33 | IPN ---
DATE: 03/06/2016 Patient seen and examined at the bedside. Chart has been reviewed. This morning, patient has no new complaints. She denies any palpitations, lightheadedness or dizziness. No chest pain, pressure or tightness. Telemetry is unremarkable, continuous sinus rhythm, ventricular rate of 58-72. Vitals: Temperature 97.1, pulse 66, respiratory 20, blood pressure 120/70, 95% on room air. Generally, patient is awake, alert, oriented times three, answering questions appropriately. Lungs are clear to auscultation, no wheezing, rales or rhonchi. Heart: S1, S2, sinus rhythm. Abdomen: Soft, nontender, nondistended. Positive bowel sounds. Extremities: No cyanosis, clubbing, jaundice of icterus. LABORATORY DATA: White count 4.7, hemoglobin 8.8, hematocrit 27, platelet count 73, previous platelet count of 119. Sodium 139, potassium 4, chloride 108, bicarbonate 20, BUN 17, creatinine 0.7, glucose 113. Troponin 0.18. ASSESSMENT AND PLAN: This is a 56-year-old female with history of hepatitis C, liver cirrhosis, chronic thrombocytopenia secondary to end stage liver disease, asthma, esophageal varices, primary autoimmune hepatitis, reflux disease, hypertension, cholecystectomy, tonsillectomy, sphenoidectomy, tubal ligation, liver biopsy esophageal fluid mass collection biopsy, presented to the emergency room with complaints of palpitations, found to have SVT treated with adenosine and has since been in sinus rhythm. CURRENT ISSUES: 1. SVT. At this time, patient will be monitored on telemetry for the next 24 hours. Await echocardiogram, beta blockade if needed if patient's heart rate is greater than 140-150. Await echo results prior to discharge home. 2. 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 Outpatient followup. No acute decompensation. 3. Chronic thrombocytopenia secondary to liver disease. No acute need for intervention. 4. Esophageal varices, no complaints of GI bleed. [facility]
--- NOTE | 2016-03-07 08:38 | IPN ---
DATE: 03/07/2016 Mrs. Zafar has been feeling fine since yesterday. She originally came with supraventricular tachycardia (SVT) that converted with single dose of adenosine. She has been maintaining sinus rhythm. She recalled that after the conversion she had brief episode of chest discomfort that lasted about 30 minutes, but it has resolved and has not recurred. She is feeling well and would like to go home. Blood pressure 98/70. Heart rate is in 60s. She is afebrile. Saturation 94% on room air. Weight is 80.1 kg. She is alert and oriented and appropriate. Jugular venous pulse (JVP) is not elevated. Heart: Reveals regular rhythm. I do not appreciate gallop, rub or murmur. Lungs are clear to auscultation. Abdomen is obese. I do not appreciate shifting dullness even though she believes that she has some degree of ascites. There is mild peripheral edema. Laboratory-jhaveri, CBC: Hemoglobin 9.7, hematocrit 30, platelet count 78,000. Basic metabolic panel is normal. Troponin has been elevated very marginally, peak was 0.30. TSH was 2.2. Her echocardiogram is pending. Last electrocardiogram revealed sinus rhythm with ventricular rate of 75 beats per minute and a very subtle nonspecific repolarization abnormality. Probable left ventricular hypertrophy (LVH) and based on voltage criteria. ASSESSMENT/PLAN: Mrs. Zafar is a 56-year-old female who has liver cirrhosis with history of GI bleeding due to hepatitis C that has not been cured. Unfortunately, she presented with SVT that lasted approximately 30 minutes and terminated with administration of adenosine. At this point, she has been in sinus rhythm. There has been minor troponin elevation. This was the first episode of SVT in her life. I would continue current management with nadolol. She has a history of GI bleeding and consequently nonselective beta-blockers is clearly indicated for both SVT and reducing the recurrence of GI bleeding. The dose is already relatively high and she tells me that her blood pressure is typically soft and heart rate relatively bradycardic. Provided echocardiogram reveals preserved LV systolic function, I believe she can be discharged home. I will arrange for outpatient followup. Even though her troponin is mildly elevated, it usually does not indicate presence of obstructive coronary artery disease. First of all, it is uncommon in people with liver cirrhosis to have obstructive CAD and also treatment would be very complicated on account of underlying bleeding risk with thrombocytopenia and history of variceal bleed. I spoke with the patient about this and we will arrange for outpatient followup.
[2016-03-07] MEDS: FUROSEMIDE 20 MG TAB PO SCH (09:00)
[2016-03-07] MEDS: SPIRONOLACTONE 50 MG TAB PO SCH (09:00)
[2016-03-07] MEDS: rifAXIMin 550 MG TAB (XIFAXAN) PO SCH (09:40)
[2016-03-07] MEDS: PANTOPRAZOLE 40MG TAB (PROTONIX) PO SCH (09:40)
[2016-03-07] MEDS: predniSONE 5 MG TAB PO SCH (09:40)
--- NOTE | 2016-03-07 19:04 | ECHO ---
DATE OF PROCEDURE: 03/07/2016 REFERRING PHYSICIAN: Homa Ken MD, Prachi Devi MD INDICATION: Supraventricular tachycardia (SVT), elevated troponin. HEIGHT: 150 cm WEIGHT: 79 kg DIMENSIONS: IVS: 1.3 LV: 3.6 LVPW: 1.3 LA: 3.7 Aorta: 2.9 FINDINGS: The study is of acceptable technical quality. Left ventricle is normal size and systolic function with estimated left ventricular ejection fraction (LVEF) of 60-65%. Mild left ventricular hypertrophy is noted. Right ventricle does not appear enlarged. Left atrium is at least mildly enlarged. Right atrium is probably normal size. Aortic mitral tricuspid and pulmonic valves were all reasonably well seen and appear normal. No pericardial effusion is noted. Inferior vena cava was not well seen. Aortic root and aortic arch appear normal. Abdominal aorta was not visualized. Doppler interrogation reveals no aortic stenosis or insufficiency. There is trace mitral and trace tricuspid insufficiency. Calculated pulmonary artery pressure is within normal limits assuming normal central venous pressure (CVP). Pulmonic valve also exhibits trace insufficiency. Mitral inflow pattern and tissue Doppler imaging of mitral annulus reveal grade 1 diastolic dysfunction. CONCLUSION 1. Study is of good technical quality. 2. Normal left ventricle (LV) size with mild left ventricular hypertrophy (LVH) and preserved LV systolic function. Grade 1 diastolic dysfunction. 3. No hemodynamically significant valvular disease. 4. Unable to estimate central venous pressure but likely normal pulmonary artery pressure. COMMENT Subacute bacterial endocarditis (SBE) prophylaxis is not recommended.
--- NOTE | 2016-03-07 20:25 | CR ---
DATE OF CONSULTATION: 03/06/2016 REFERRING PHYSICIAN: Emergency room/hospitalist. REASON FOR CONSULTATION: Supraventricular tachycardia (SVT), abnormal serum troponin. HISTORY OF PRESENT ILLNESS: 56-year-old woman well known by the office with a history of cirrhosis of the liver with associated esophageal varices and upper gastrointestinal (GI) bleed, as well as ascites secondary to hepatitis C, woke yesterday in the morning with palpitations which she described as a rapid heart rate associated with shortness of breath and chest pain. She waited about two hours and then came to the emergency room. Upon arrival, she was in supraventricular tachycardia at about 148 beats per minute and her blood pressure was reported to be 84/65 with respirations of 22, oxygen saturation 92% on room air. She received a bolus of 1,000 mL of normal saline and 60 mg intravenous (IV ) Adenocard and she spontaneously cardioverted to a normal sinus rhythm. Her serum troponin was minimally abnormal and she was admitted for further management and monitoring. This morning, Mrs. France Zafar was seen in the emergency room, in no acute distress, happy that she has not been having the palpitations since being in the hospital. She has no prior history. She denies any chest pain. She does complain of shortness of breath and fatigue but she thinks this has been chronic. She denies any active bleeding. She has no focal manifestation. She denies any pedal edema. PAST MEDICAL HISTORY: She has a past medical history positive in addition to the above for: 1. Hepatitis C complicated by cirrhosis of the liver and associated upper GI bleeding secondary to bleeding esophageal varices. 2. Ascites that required paracentesis. 3. Hepatic encephalopathy. 4. She also has a history of hypertension. 5. Gastrointestinal reflux disease (GERD). 6. Chronic pulmonary obstructive disease (COPD)/asthma. Her labs today revealed anemia and thrombocytopenia. There is no known history of coronary artery disease, myocardial infarction, congestive heart failure, significant valvular heart disease, atrial fibrillation, cardiomyopathy, sudden cardiac . There is no history of diabetes mellitus, thyroid disorders, kidney disease, known hyperlipidemia. PAST SURGICAL HISTORY: Positive for: 1. Tubal ligation. 2. Tonsillectomy. 3. Multiple liver biopsies and paracentesis. FAMILY HISTORY: Positive for coronary artery disease, hypertension, diabetes mellitus and cancer. SOCIAL HISTORY: The patient lives with her and she has a daughter who also lives in town and is very supportive. She has no history of smoking and there is no history of ETOH abuse or illicit drugs. HOME MEDICATIONS: - nadolol 40 mg at night - furosemide 20 mg by mouth daily - spironolactone 25 mg by mouth daily - Symbicort 160/4.5 mcg two puffs twice a day - pantoprazole 40 mg packet once a day - Pro Air HFA 90 mcg one puff every four hours as needed - prednisone 20 mg by mouth daily - azathioprine 50 mg by mouth once a day - rifaximin 150 mg by mouth twice a day - Singulair 10 mg by mouth daily PHYSICAL EXAMINATION: The patient is alert and oriented, in no acute distress. VITAL SIGNS: Early today when I saw her reveal a blood pressure of 100/62, pulse 72, respirations 20 and maximum temperature 98.3 degrees Fahrenheit, oxygen saturation of 95% on room air. HEAD, EYES, EARS, NOSE AND THROAT: Atraumatic. NECK: Supple with no jugular venous distention (JVD). LUNGS: Clear bilaterally to auscultation, did not reveal wheezing or crackles. HEART: On admission normal S1, S2 without gallops. The point of maximal impulse (PMI) is not displaced. There is no rub. ABDOMEN: Soft and she was not evaluated for ascites. EXTREMITIES: No pitting edema. NEUROLOGICAL EXAMINATION: Grossly negative for focal deficit. LABORATORIES: BMP done today reveals a sodium 139, potassium 4.1, chloride 108, CO2 20, BUN 17, creatinine 0.70, GFR more than 60, fasting glucose 113, calcium 7.8. BMP on admission revealed a sodium of 142, potassium 4.4, chloride 106, CO2 26, BUN 22, creatinine 1.05, GFR 57.7, fasting glucose 164, calcium 8.9. Troponin was less than 0.02 then up to 0.15, 0.30, 0.26 and the latest one was 0.18. TSH 2.2. Serum BNP on admission was 56.4. CBC done late today revealed WBC 4.7, hemoglobin 8.8, hematocrit 27.4 and platelets 73,000 and upon repeating this evening the CBC revealed a WBC of 5.3, hemoglobin 9.7, hematocrit 30.7, and platelets 78,000. On admission 03/05/2016 the CBC revealed a WBC of 8.5, hemoglobin 11.4, hematocrit 35.8 and platelets 119,000. IMAGING: Chest x-ray was reviewed and revealed mild cardiomegaly, otherwise no manifestation of heart failure or pleural effusion. First electrocardiogram revealed a narrow complex supraventricular tachycardia (SVT) that could be atrial flutter versus SVT. There was mild intraventricular conduction delay (IVCD) and nonspecific ST-T abnormality. Late repeat electrocardiogram done also yesterday at 10:09:10 revealed normal sinus rhythm at 88 beats per minute, voltage criteria for left ventricular hypertrophy, with repolarization abnormalities. Electrocardiogram done 03/05/2016 at 12:11:01 revealed also normal sinus rhythm at 71 beats per minute with voltage criteria for left ventricular hypertrophy and mild repolarization abnormalities. No remarkable changes from last tracing. IMPRESSION: 1. New complex supraventricular tachycardia in this 56-year-old woman with history of cirrhosis of the liver, hypertension, symptomatic with chest pain and shortness of breath. She has no prior history. She responded beautifully after one dose of 6 mg of intravenous Adenocard, this is probably a supraventricular tachycardia. We have discussed about Valsalva maneuvers and she will continue the same medications. It seems that she is scheduled to have an echocardiogram and it will be reviewed and then further recommendations will be given. In the meantime, I will continue with the current dose of the Adenocard. In view of the abnormal serum troponin and associated chest pain with her symptoms she may benefit from a stress test as an outpatient. She will be given an appointment upon discharge. 2. Hypertension, under control. 3. History of chronic pulmonary obstructive disease (COPD)/asthma. 4. Anemia and pancytopenia most likely related to the cirrhosis of the liver. 5. Cirrhosis of the liver and it's complications with associated history of hepatic encephalopathy, as well as upper gastrointestinal (GI) bleed secondary to esophageal varices, ascites that required paracentesis. 6. The patient is currently being monitored by a can reforming machine operator in [place], [place] and she goes also to [place], [place] to be evaluated for a transplant, currently not on the transplant list. It was a pleasure to participate in the care of Mrs. France Zafar for her underlying cardiac condition. I will continue to monitor along with you while in the hospital. Please do not hesitate to call if any questions. MTDD
--- NOTE | 2016-03-08 15:48 | EDDOCDS ---
Physician Documentation [facility] Name: France Zafar Age: 56 yrs Sex: Female : 1960 Arrival Date: 03/05/2016 Time: 09:40 Bed Admit Hold Private MD: [place] [facility] [place]position: 03/05/16 13:30 Hospitalization ordered by Prachi Devi for Inpatient Admission. Preliminary diagnosis is Chest pain, unspecified. - Bed requested for PCU. - Status is Inpatient Admission. bcj - Condition is Stable. - Problem is new. - Symptoms have improved. Historical: - Allergies: SULFA (SULFONAMIDES); - Home Meds: 1. nadolol 40 mg oral tab 1 tab once daily (Last dose: 03/04/2016 21:00) 2. furosemide 20 mg Oral tab 1 tab once daily 3. rifaximin 550 mg oral tab 1 tab 2 times per day 4. montelukast 10 mg oral tab 1 tab once daily 5. spironolactone 25 mg Oral tab 1 tab once daily 6. Symbicort 160-4.5 mcg/actuation inhalation HFAA 2 puffs 2 times per day 7. pantoprazole 40 mg oral grps 1 packet once daily 8. ProAir HFA 90 mcg/actuation inhalation HFAA 1 puff every 4 hours 9. prednisone 20 mg Oral tab once daily 10. azathioprine 50 mg Oral tab once daily - PMHx: espohageal varicies; GERD; Asthma; Hepatitis C; - PSHx: Tubal ligation; 5 liver biopsies; Tonsillectomy; parencetesis; - Social history: Smoking status: Patient states was never smoker of tobacco. No barriers to communication noted, The patient speaks fluent Chinese, Speaks appropriately for age, Smoking status: . - Family history: Not pertinent. - : The pt / caregiver states he / she is not on anticoagulants. Home medication list is obtained from the patient, family members. - Exposure Risk Screening:: None identified. Vital Signs: 03/05 09:44 BP 84 / 65; Pulse 148; Resp 22; Pulse Ox 92% on R/A; Weight 78.93 kg / 174.01 lbs (R); elp Height 4 ft. 11 in. (149.86 cm) (R); 10:10 BP 93 / 63 (auto/); ead 10:10 Pulse 144 MON; Resp 16; Pulse Ox 95% on R/A; ead 10:13 Pulse 144 MON; Pulse Ox 96% ; ead 10:14 BP 94 / 61 (auto/); ead 10:14 Pulse 144 MON; Pulse Ox 97% ; ead 10:15 Pulse 87 MON; Pulse Ox 98% ; ead 10:16 Pulse 83 MON; Pulse Ox 98% ; ead 11:16 Pulse 76 MON; Resp 16; Pulse Ox 96% on R/A; ead 11:37 Pulse 72 MON; Pulse Ox 95% ; ead 11:40 BP 112 / 70 (auto/); ead 11:40 Pulse 72 MON; Pulse Ox 94% ; ead 12:00 BP 109 / 64 (auto/); ead 12:00 Pulse 72 MON; Pulse Ox 96% ; ead 12:20 BP 119 / 65 (auto/); ead 12:20 Pulse 72 MON; Pulse Ox 95% ; ead 13:02 Pulse 71 MON; Pulse Ox 97% ; ead 13:32 Pulse 71 MON; Pulse Ox 96% ; ead 13:56 Pulse 70 MON; Pulse Ox 96% ; ead 14:33 BP 139 / 60 (auto/); ead 14:37 Pulse 72 MON; Pulse Ox 97% ; ead 15:00 BP 118 / 67 (auto/); ead 15:00 Pulse Ox 95% ; ead 15:30 BP 90 / 54 (auto/); ead 15:30 Pulse 80 MON; Resp 18; Pulse Ox 96% on R/A; ead 15:34 BP 90 / 53 (auto/); ead 15:34 Pulse Ox 95% ; ead 15:45 BP 99 / 62 (auto/); ead 15:45 Pulse 74 MON; Pulse Ox 95% ; ead 16:00 BP 103 / 53 (auto/); ead 16:02 Pulse 75 MON; Resp 16; Pulse Ox 95% on R/A; ead 16:15 BP 107 / 58 (auto/); dls 16:15 Pulse 73 MON; Pulse Ox 95% ; dls 16:30 BP 111 / 56 (auto/); dls 16:30 Pulse 73 MON; Pulse Ox 95% ; dls 16:45 BP 105 / 58 (auto/); dls 16:45 Pulse 71 MON; Pulse Ox 96% ; dls 17:42 BP 110 / 59 (auto/); pml 17:44 Pulse 70 MON; Pulse Ox 95% ; pml 09:44 Body Mass Index 35.14 (78.93 kg, 149.86 cm) elp MDM: 09:44 ECG WITH READING ER PHYS+CARDIAG ordered. EDMS 09:46 Aspirin Chewable Tablet 324 mg PO once ordered. fg 09:46 Dice Table Person/Pulse Ox/q 30 min VS ordered. fg 09:46 IV Saline Lock ordered. fg 09:46 Rhythm Strip to chart ordered. fg 09:46 Undress patient appropriately for examination ordered. fg 09:47 B-Type Natiuretic Peptide Ordered. EDMS 09:47 Basic Metabolic Profile Ordered. EDMS 09:47 CBC with Diff Ordered. EDMS 09:48 Cardiac Injury Profile Ordered. EDMS 09:48 Troponin Ordered. EDMS 09:48 portable chest Ordered. EDMS 10:03 Adenosine 6 mg IVP once ordered. fg 10:03 Adenosine 12 mg IVP once ordered. fg 10:03 NS 0.9% 1000 ml IV at bolus once ordered. fg 10:04 Misc. Nursing Order ordered. fg 10:08 Financial registration complete. lg 10:10 ECG WITH READING ER PHYS+CARDIAG ordered. EDMS 10:13 [facility] Payment Agreement was scanned into m[employer] and attached to record. lg 12:03 Cardiac Injury Profile Ordered. EDMS 12:03 Troponin Ordered. EDMS 12:04 ECG WITH READING ER PHYS+CARDIAG ordered. EDMS 13:31 BED REQUEST+ADM ordered. EDMS 13:55 Admission / Observation Status ordered. EDMS 13:55 ECHOCARD,DOPPLER/COLOR FLOW ordered. EDMS 13:56 2 GRAM SODIUM DIET ordered. EDMS 13:57 THYROID STIMULATING HORMONE Ordered. EDMS 13:57 TROPONIN Ordered. EDMS 17:44 T-Sheet-- Draft Copy was scanned into mParticle and attached to record. klr 19:32 TROPONIN Ordered. EDMS 20:02 ELECTROCARDIOGRAM ADULT ordered. EDMS 03/06 07:00 COMPLETE BLOOD COUNT Ordered. EDMS 07:03 CARDIAC MARKER PANEL Ordered. EDMS 07:03 BASIC METABOLIC PROFILE Ordered. EDMS 13:38 CBC WITH DIFFERENTIAL Ordered. EDMS Administered Medications: 03/05 10:12 Drug: Adenosine 6 mg [adenosine 3 mg/mL intravenous solution (2 mL)] Route: IVP; Site: ead right antecubital; 10:15 Follow up: Response: Cardiac Rhythm changed; No Adverse Reaction ead 10:19 Drug: NS 0.9% 1000 ml [sodium chloride 0.9 % intravenous solution] Route: IV; Rate: ead bolus; Site: right antecubital; 10:21 Not Given (Patient Refused): Aspirin Chewable Tablet 324 mg PO once ead 10:22 Not Given (pt responded to first dose, second dose not needed): Adenosine 12 mg IVP onceead Signatures: Dispatcher [employer] EDJesús Tyson, RN RN Noah Manzo, Reg Reg lg Pat Lucero RN RN hs1 Brook VasquezRN Jomar Morales RN RN mts Gill, Frances, MD MD fg Redder, Kathie klr The chart was reviewed and I authenticate all verbal orders and agree with the evaluation and treatment provided.Corrections: (The following items were deleted from the chart) 03/06 07:04 03/05 19:54 TROPONIN ordered. EDMS EDMS 03/06 07:04 07:00 CARDIAC MARKER PANEL ordered. EDMS EDMS 07: 07:00 BASIC METABOLIC PROFILE ordered. EDWI EDMS : 03/05 10:13 [facility] Payment Agreement lg 17:44 T-Sheet-- Draft Copy nupur Chart Complete MTDD
--- NOTE | 2016-03-08 15:48 | EDDOCDS ---
Physician Documentation Name: France Zafar Age: 56 yrs Sex: Female : 1960 Arrival Date: 03/05/2016 Time: 09:40 Bed Admit Hold Private MD: Slava [facility] [place] Disposition: 03/05/16 13:30 Hospitalization ordered by Prachi Devi for Inpatient Admission. Preliminary diagnosis is Chest pain, unspecified. - Bed requested for PCU. - Status is Inpatient Admission. bcj - Condition is Stable. - Problem is new. - Symptoms have improved. Historical: - Allergies: SULFA (SULFONAMIDES); - Home Meds: 1. nadolol 40 mg oral tab 1 tab once daily (Last dose: 03/04/2016 21:00) 2. furosemide 20 mg Oral tab 1 tab once daily 3. rifaximin 550 mg oral tab 1 tab 2 times per day 4. montelukast 10 mg oral tab 1 tab once daily 5. spironolactone 25 mg Oral tab 1 tab once daily 6. Symbicort 160-4.5 mcg/actuation inhalation HFAA 2 puffs 2 times per day 7. pantoprazole 40 mg oral grps 1 packet once daily 8. ProAir HFA 90 mcg/actuation inhalation HFAA 1 puff every 4 hours 9. prednisone 20 mg Oral tab once daily 10. azathioprine 50 mg Oral tab once daily - PMHx: espohageal varicies; GERD; Asthma; Hepatitis C; - PSHx: Tubal ligation; 5 liver biopsies; Tonsillectomy; parencetesis; - Social history: Smoking status: Patient states was never smoker of tobacco. No barriers to communication noted, The patient speaks fluent [place], Speaks appropriately for age, Smoking status: . - Family history: Not pertinent. - : The pt / caregiver states he / she is not on anticoagulants. Home medication list is obtained from the patient, family members. - Exposure Risk Screening:: None identified. Vital Signs: 03/05 09:44 BP 84 / 65; Pulse 148; Resp 22; Pulse Ox 92% on R/A; Weight 78.93 kg / 174.01 lbs (R); elp Height 4 ft. 11 in. (149.86 cm) (R); 10:10 BP 93 / 63 (auto/); ead 10:10 Pulse 144 MON; Resp 16; Pulse Ox 95% on R/A; ead 10:13 Pulse 144 MON; Pulse Ox 96% ; ead 10:14 BP 94 / 61 (auto/); ead 10:14 Pulse 144 MON; Pulse Ox 97% ; ead 10:15 Pulse 87 MON; Pulse Ox 98% ; ead 10:16 Pulse 83 MON; Pulse Ox 98% ; ead 11:16 Pulse 76 MON; Resp 16; Pulse Ox 96% on R/A; ead 11:37 Pulse 72 MON; Pulse Ox 95% ; ead 11:40 BP 112 / 70 (auto/); ead 11:40 Pulse 72 MON; Pulse Ox 94% ; ead 12:00 BP 109 / 64 (auto/); ead 12:00 Pulse 72 MON; Pulse Ox 96% ; ead 12:20 BP 119 / 65 (auto/); ead 12:20 Pulse 72 MON; Pulse Ox 95% ; ead 13:02 Pulse 71 MON; Pulse Ox 97% ; ead 13:32 Pulse 71 MON; Pulse Ox 96% ; ead 13:56 Pulse 70 MON; Pulse Ox 96% ; ead 14:33 BP 139 / 60 (auto/); ead 14:37 Pulse 72 MON; Pulse Ox 97% ; ead 15:00 BP 118 / 67 (auto/); ead 15:00 Pulse Ox 95% ; ead 15:30 BP 90 / 54 (auto/); ead 15:30 Pulse 80 MON; Resp 18; Pulse Ox 96% on R/A; ead 15:34 BP 90 / 53 (auto/); ead 15:34 Pulse Ox 95% ; ead 15:45 BP 99 / 62 (auto/); ead 15:45 Pulse 74 MON; Pulse Ox 95% ; ead 16:00 BP 103 / 53 (auto/); ead 16:02 Pulse 75 MON; Resp 16; Pulse Ox 95% on R/A; ead 16:15 BP 107 / 58 (auto/); dls 16:15 Pulse 73 MON; Pulse Ox 95% ; dls 16:30 BP 111 / 56 (auto/); dls 16:30 Pulse 73 MON; Pulse Ox 95% ; dls 16:45 BP 105 / 58 (auto/); dls 16:45 Pulse 71 MON; Pulse Ox 96% ; dls 17:42 BP 110 / 59 (auto/); pml 17:44 Pulse 70 MON; Pulse Ox 95% ; pml 09:44 Body Mass Index 35.14 (78.93 kg, 149.86 cm) elp MDM: 09:44 ECG WITH READING ER PHYS+CARDIAG ordered. EDMS 09:46 Aspirin Chewable Tablet 324 mg PO once ordered. fg 09:46 Cooker Loader/Pulse Ox/q 30 min VS ordered. fg 09:46 IV Saline Lock ordered. fg 09:46 Rhythm Strip to chart ordered. fg 09:46 Undress patient appropriately for examination ordered. fg 09:47 B-Type Natiuretic Peptide Ordered. EDMS 09:47 Basic Metabolic Profile Ordered. EDMS 09:47 CBC with Diff Ordered. EDMS 09:48 Cardiac Injury Profile Ordered. EDMS 09:48 Troponin Ordered. EDMS 09:48 portable chest Ordered. EDMS 10:03 Adenosine 6 mg IVP once ordered. fg 10:03 Adenosine 12 mg IVP once ordered. fg 10:03 NS 0.9% 1000 ml IV at bolus once ordered. fg 10:04 Misc. Nursing Order ordered. fg 10:08 Financial registration complete. lg 10:10 ECG WITH READING ER PHYS+CARDIAG ordered. EDMS 10:13 [facility] Payment Agreement was scanned into SlideShare and attached to record. lg 12:03 Cardiac Injury Profile Ordered. EDMS 12:03 Troponin Ordered. EDMS 12:04 ECG WITH READING ER PHYS+CARDIAG ordered. EDMS 13:31 BED REQUEST+ADM ordered. EDMS 13:55 Admission / Observation Status ordered. EDMS 13:55 ECHOCARD,DOPPLER/COLOR FLOW ordered. EDMS 13:56 2 GRAM SODIUM DIET ordered. EDMS 13:57 THYROID STIMULATING HORMONE Ordered. EDMS 13:57 TROPONIN Ordered. EDMS 17:44 T-Sheet-- Draft Copy was scanned into SlideShare and attached to record. klr 19:32 TROPONIN Ordered. EDMS 20:02 ELECTROCARDIOGRAM ADULT ordered. EDMS 03/06 07:00 COMPLETE BLOOD COUNT Ordered. EDMS 07:03 CARDIAC MARKER PANEL Ordered. EDMS 07:03 BASIC METABOLIC PROFILE Ordered. EDMS 13:38 CBC WITH DIFFERENTIAL Ordered. EDMS Administered Medications: 03/05 10:12 Drug: Adenosine 6 mg [adenosine 3 mg/mL intravenous solution (2 mL)] Route: IVP; Site: ead right antecubital; 10:15 Follow up: Response: Cardiac Rhythm changed; No Adverse Reaction ead 10:19 Drug: NS 0.9% 1000 ml [sodium chloride 0.9 % intravenous solution] Route: IV; Rate: ead bolus; Site: right antecubital; 10:21 Not Given (Patient Refused): Aspirin Chewable Tablet 324 mg PO once ead 10:22 Not Given (pt responded to first dose, second dose not needed): Adenosine 12 mg IVP onceead Signatures: Dispatcher [employer] EDJesús Tyson, RN RN Noah Manzo, Reg Reg lg Pat Lucero RN RN hs1 Brook VasquezRN Jomar Morales RN RN mts Gill, Frances, MD MD fg Redder, Kathie klr The chart was reviewed and I authenticate all verbal orders and agree with the evaluation and treatment provided.Corrections: (The following items were deleted from the chart) 03/06 07:04 03/05 19:54 TROPONIN ordered. EDMS EDMS 03/06 07:04 07:00 CARDIAC MARKER PANEL ordered. EDMS EDMS 07: 07:00 BASIC METABOLIC PROFILE ordered. EDOH EDMS : 03/05 10:13 [facility] Payment Agreement lg 17:44 T-Sheet-- Draft Copy nupur Chart Complete MTDD
--- NOTE | 2016-03-08 15:48 | EDDOCDS ---
Nurse's Notes [facility] Name: France Zafar Age: 56 yrs Sex: Female : 1960 Arrival Date: 03/05/2016 Time: 09:40 Bed Admit Hold Private MD: Sl[facility] Diagnosis: Chest pain, unspecified Presentation: 03/05 09:48 Presenting complaint: Patient states: chest pain began around 0600. Patient states has hs1 history of heart murmur. Denies ever knowing if in A-fib. Aspirin was not taken prior to arrival. Adult Sepsis Screening: The patient does not have new or worsening altered mentation. Patient's respiratory rate is less than 22. Systolic blood pressure is greater than 100. Patient has a qSOFA score of 0- Negative Sepsis Screen. Suicide/Homicide risk assessment- the patient denies having any suicidal and/or homicidal ideations and does not present with any other emotional, behavioral or mental health complaints. Status: Patient is not a supervisor contact and service clerks or dependent. Transition of care: patient was not received from another setting of care. 09:48 Acuity: CHRISTIANNE Level 2 hs1 09:48 Method Of Arrival: Walkin/Carried/Asstd hs1 09:48 Red Flag criteria, patient assessed and taken directly to a bed. hs1 Triage Assessment: 09:50 General: Appears in no apparent distress, well nourished, well groomed, Behavior is ead appropriate for age, cooperative. Pain: Location: chest Pain currently is 7 out of 10 on a pain scale. At worst was 10 out of 10 on a pain scale. Pain: Quality of pain is described as heavy. HIV screening NA for this visit Offered previously. Neurological: Level of Consciousness is awake, alert, Oriented to person, place, time. Cardiovascular: Chest pain is described as Pain is 7 out of 10 on a pain scale. radiates Does not radiate. episodes are continuous began 4 hours prior to arrival. Cardiovascular: Reports palpitations. Respiratory: Airway is patent Respiratory effort is even, unlabored. Derm: Skin is pink, warm & dry. Historical: - Allergies: SULFA (SULFONAMIDES); - Home Meds: 1. nadolol 40 mg oral tab 1 tab once daily (Last dose: 03/04/2016 21:00) 2. furosemide 20 mg Oral tab 1 tab once daily 3. rifaximin 550 mg oral tab 1 tab 2 times per day 4. montelukast 10 mg oral tab 1 tab once daily 5. spironolactone 25 mg Oral tab 1 tab once daily 6. Symbicort 160-4.5 mcg/actuation inhalation HFAA 2 puffs 2 times per day 7. pantoprazole 40 mg oral grps 1 packet once daily 8. ProAir HFA 90 mcg/actuation inhalation HFAA 1 puff every 4 hours 9. prednisone 20 mg Oral tab once daily 10. azathioprine 50 mg Oral tab once daily - PMHx: espohageal varicies; GERD; Asthma; Hepatitis C; - PSHx: Tubal ligation; 5 liver biopsies; Tonsillectomy; parencetesis; - Social history: Smoking status: Patient states was never smoker of tobacco. No barriers to communication noted, The patient speaks fluent Luxembourger, Speaks appropriately for age, Smoking status: . - Family history: Not pertinent. - : The pt / caregiver states he / she is not on anticoagulants. Home medication list is obtained from the patient, family members. - Exposure Risk Screening:: None identified. Assessment: 10:20 Reassessment: Patient states feeling better. Patient states symptoms have improved. ead General: Appears in no apparent distress, comfortable, Behavior is appropriate for age, cooperative. Pain: Pain currently is 2 out of 10 on a pain scale. Cardiovascular: Rhythm is regular Denies palpitations. Derm: Skin is pink, warm & dry. 11:30 General: Appears in no apparent distress, comfortable, Behavior is appropriate for age, ead cooperative, pleasant. Pain: Denies pain. Neurological: No deficits noted. Neurological: Denies dizziness. Cardiovascular: Capillary refill < 3 seconds Rhythm is sinus rhythm Chest pain is denied. Cardiovascular: Denies palpitations. Respiratory: Denies shortness of breath. Derm: Skin is pink, warm & dry. 12:30 General: Appears in no apparent distress, comfortable, Behavior is appropriate for age, ead cooperative, pleasant. Respiratory: Airway is patent Respiratory effort is even, unlabored. Derm: Skin is pink, warm & dry. 13:30 General: Appears in no apparent distress, to be sleeping. Cardiovascular: Rhythm is ead sinus rhythm. Respiratory: Airway is patent Respiratory effort is even, unlabored. 14:38 General: Appears in no apparent distress, comfortable, Behavior is appropriate for age, ead cooperative, pt ambulated to bathroom without difficulty. updated of bed status for hospitalization. . Pain: Denies pain. Cardiovascular: Rhythm is sinus rhythm. Respiratory: Airway is patent Respiratory effort is even, unlabored. Derm: Skin is pink, warm & dry. 16:00 General: Appears in no apparent distress, comfortable, Behavior is appropriate for age, ead cooperative. Neurological: No deficits noted. Cardiovascular: Rhythm is sinus rhythm. Respiratory: Airway is patent Respiratory effort is even, unlabored. Derm: Skin is pink, warm & dry. 17:50 General: Appears in no apparent distress, Behavior is appropriate for age, cooperative. pml Pain: Denies pain. Neurological: Level of Consciousness is awake, alert, Oriented to person, place, time. Cardiovascular: Capillary refill < 3 seconds Rhythm is sinus rhythm No ectopy. Respiratory: Airway is patent Respiratory effort is even, unlabored. GI: Abdomen is non- distended obese. Derm: Skin is pink, warm & dry. Vital Signs: 09:44 BP 84 / 65; Pulse 148; Resp 22; Pulse Ox 92% on R/A; Weight 78.93 kg (R); Height 4 ft. elp 11 in. (149.86 cm) (R); 10:10 BP 93 / 63 (auto/); ead 10:10 Pulse 144 MON; Resp 16; Pulse Ox 95% on R/A; ead 10:13 Pulse 144 MON; Pulse Ox 96% ; ead 10:14 BP 94 / 61 (auto/); ead 10:14 Pulse 144 MON; Pulse Ox 97% ; ead 10:15 Pulse 87 MON; Pulse Ox 98% ; ead 10:16 Pulse 83 MON; Pulse Ox 98% ; ead 11:16 Pulse 76 MON; Resp 16; Pulse Ox 96% on R/A; ead 11:37 Pulse 72 MON; Pulse Ox 95% ; ead 11:40 BP 112 / 70 (auto/); ead 11:40 Pulse 72 MON; Pulse Ox 94% ; ead 12:00 BP 109 / 64 (auto/); ead 12:00 Pulse 72 MON; Pulse Ox 96% ; ead 12:20 BP 119 / 65 (auto/); ead 12:20 Pulse 72 MON; Pulse Ox 95% ; ead 13:02 Pulse 71 MON; Pulse Ox 97% ; ead 13:32 Pulse 71 MON; Pulse Ox 96% ; ead 13:56 Pulse 70 MON; Pulse Ox 96% ; ead 14:33 BP 139 / 60 (auto/); ead 14:37 Pulse 72 MON; Pulse Ox 97% ; ead 15:00 BP 118 / 67 (auto/); ead 15:00 Pulse Ox 95% ; ead 15:30 BP 90 / 54 (auto/); ead 15:30 Pulse 80 MON; Resp 18; Pulse Ox 96% on R/A; ead 15:34 BP 90 / 53 (auto/); ead 15:34 Pulse Ox 95% ; ead 15:45 BP 99 / 62 (auto/); ead 15:45 Pulse 74 MON; Pulse Ox 95% ; ead 16:00 BP 103 / 53 (auto/); ead 16:02 Pulse 75 MON; Resp 16; Pulse Ox 95% on R/A; ead 16:15 BP 107 / 58 (auto/); dls 16:15 Pulse 73 MON; Pulse Ox 95% ; dls 16:30 BP 111 / 56 (auto/); dls 16:30 Pulse 73 MON; Pulse Ox 95% ; dls 16:45 BP 105 / 58 (auto/); dls 16:45 Pulse 71 MON; Pulse Ox 96% ; dls 17:42 BP 110 / 59 (auto/); pml 17:44 Pulse 70 MON; Pulse Ox 95% ; pml 09:44 Body Mass Index 35.14 (78.93 kg, 149.86 cm) elp Vitals: 09:44 Log In Time: March 05, 2016 at 09:42. RN notified that patient meets Red Flag elp criteria. ED Course: 09:43 Patient visited by Evette Fink PCA. elp 09:43 Patient moved to Waiting elp 09:44 Brook Vasquez,LUDWIN is Primary Nurse. elp 09:44 MICHAEL Pedersen is Private Physician. elp 09:44 Patient visited by Evette Fink PCA. elp 09:44 Patient moved to 3 elp 09:45 Chey Keene MD is Attending Physician. fg 09:45 Patient visited by Chey Keene MD. fg 09:49 Triage Initiated hs1 09:54 EKG done. (by ED staff). Reviewed by Chey Keene MD. rn1 10:03 B-Type Natiuretic Peptide Sent. ead 10:03 Troponin Sent. ead 10:03 Cardiac Injury Profile Sent. ead 10:03 CBC with Diff Sent. ead 10:03 Basic Metabolic Profile Sent. ead 10:13 [facility] Payment Agreement was scanned into [employer] and attached to record. lg 10:17 EKG done. (by ED staff). Reviewed by Chey Keene MD. jrd 10:26 Patient visited by Brook Vasquez,RN. ead 11:38 Patient visited by Brook Vasquez,RN. ead 12:12 EKG done. (by ED staff). Reviewed by Chey Keene MD. rn1 12:24 Patient visited by Brook Vasquez,LUDWIN. ead 12:33 Patient visited by Brook Vasquez,LUDWIN. ead 12:33 Troponin Sent. ead 12:33 Cardiac Injury Profile Sent. ead 13:30 Prachi Devi is Hospitalizing Provider. fg 16:55 Patient moved to 19 dls 17:44 T-Sheet-- Draft Copy was scanned into [employer] and attached to record. klr 17:52 Patient visited by Massiel Moon,LUDWIN. pml 19:15 Patient moved to Admit Hold [facility]1 03/06 02:54 Primary Nurse role handed off by Brook Vasquez,LUDWIN parker 12:49 Patient visited by Lzi Granados PCA. bnb 12:49 Diet: Patient given regular meal. Tolerated well. bnb Administered Medications: 03/05 10:12 Drug: Adenosine 6 mg [adenosine 3 mg/mL intravenous solution (2 mL)] Route: IVP; Site: ead right antecubital; 10:15 Follow up: Response: Cardiac Rhythm changed; No Adverse Reaction ead 10:19 Drug: NS 0.9% 1000 ml [sodium chloride 0.9 % intravenous solution] Route: IV; Rate: ead bolus; Site: right antecubital; 10:21 Not Given (Patient Refused): Aspirin Chewable Tablet 324 mg PO once ead 10:22 Not Given (pt responded to first dose, second dose not needed): Adenosine 12 mg IVP onceead Order Results: Lab Order: B-Type Natiuretic Peptide; SPEC'M 03/05/16 10:00 Test: BRAIN NATRIURETIC PEPTIDE; Value: 56.4; Range: <100; Units: PG/ML; Status: F Lab Order: Basic Metabolic Profile; SPEC'03/05/16 09:59 Test: GLUCOSE, FASTING; Value: 164; Range: 70-105; Abnormal: Above high normal; Units: MG/DL; Status: F Test: BLOOD UREA NITROGEN; Value: 22; Range: 7-18; Abnormal: Above high normal; Units: MG/DL; Status: F Test: CREATININE FOR GFR; Value: 1.05; Range: 0.55-1.02; Abnormal: Above high normal; Units: MG/DL; Status: F Test: GLOMERULAR FILTRATION RATE; Value: 57.7; Range: >51; Status: F Test: SODIUM LEVEL; Value: 142; Range: 136-145; Units: MEQ/L; Status: F Test: POTASSIUM SERUM; Value: 4.4; Range: 3.5-5.1; Units: MEQ/L; Status: F Test: CHLORIDE LEVEL; Value: 106; Range: 98-107; Units: MEQ/L; Status: F Test: CARBON DIOXIDE LEVEL; Value: 26; Range: 21-32; Units: MEQ/L; Status: F Test: ANION GAP; Value: 10; Range: 8-16; Units: MEQ/L; Status: F Test: CALCIUM LEVEL; Value: 8.9; Range: 8.5-10.1; Units: MG/DL; Status: F Test Note: ; Units are mL/min/1.73 m2 Chronic Kidney Disease Staging per NKF: Stage I & II GFR >=60 Normal to Mildly Decreased Stage III GFR 30-59 Moderately Decreased Stage IV GFR 15-29 Severely Decreased Stage V GFR <15 Very Little GFR Left ESRD GFR <15 on HELICOPTER PILOT INSTRUCTOR Lab Order: CBC with Diff; SPEC'03/05/16 10:00 Test: WHITE BLOOD COUNT; Value: 8.5; Range: 4.0-10.0; Units: K/mm3; Status: F Test: RED BLOOD COUNT; Value: 3.90; Range: 4.00-5.40; Abnormal: Below low normal; Units: M/mm3; Status: F Test: HEMOGLOBIN; Value: 11.4; Range: 12.0-16.0; Abnormal: Below low normal; Units: g/dl; Status: F Test: HEMATOCRIT; Value: 35.8; Range: 36.0-47.0; Abnormal: Below low normal; Units: %; Status: F Test: MEAN CORPUSCULAR VOLUME; Value: 91.8; Range: 80.0-96.0; Units: fl; Status: F Test: MEAN CORPUSCULAR HEMOGLOBIN; Value: 29.2; Range: 27.0-33.0; Units: pg; Status: F Test: MEAN CORPUSCULAR HGB CONC; Value: 31.8; Range: 32.0-36.5; Abnormal: Below low normal; Units: g/dl; Status: F Test: RED CELL DISTRIBUTION WIDTH; Value: 21.0; Range: 11.5-14.5; Abnormal: Above high normal; Units: %; Status: F Test: PLATELET COUNT, AUTOMATED; Value: 119; Range: 150-450; Abnormal: Below low normal; Units: k/mm3; Status: F Test: NEUTROPHILS %; Value: 71.9; Range: 36.0-66.0; Abnormal: Above high normal; Units: %; Status: F Test: LYMPH %; Value: 22.9; Range: 24.0-44.0; Abnormal: Below low normal; Units: %; Status: F Test: MONO %; Value: 2.5; Range: 0.0-5.0; Units: %; Status: F Test: EOS %; Value: 0.7; Range: 0.0-3.0; Units: %; Status: F Test: BASO %; Value: 0.6; Range: 0.0-1.0; Units: %; Status: F Test: LARGE UNSTAINED CELL %; Value: 1.3; Range: 0.0-4.0; Units: %; Status: F Test: NEUTROPHILS #; Value: 6.1; Range: 1.8-7.7; Units: K/mm3; Status: F Test: LYMPH #; Value: 2.0; Range: 1.5-4.5; Units: K/mm3; Status: F Test: MONO #; Value: 0.2; Range: 0.0-0.8; Units: K/mm3; Status: F Test: EOS #; Value: 0.1; Range: 0.0-0.50; Units: K/mm3; Status: F Test: BASO #; Value: 0.0; Range: 0.0-0.2; Units: K/mm3; Status: F Test: LARGE UNSTAINED CELL #; Value: 0.1; Range: 0.0-0.4; Units: K/mm3; Status: F Lab Order: Cardiac Injury Profile; [facility] 03/05/16 09:59 Test: CPK CREATINE PHOSPHOKINASE; Value: 96; Range: 26-192; Units: U/L; Status: F Test: CK-MB VALUE MASS; Value: 1.2; Range: 0.0-3.6; Units: NG/ML; Status: F Test: MB/CK RELATIVE INDEX; Value: 1.25; Range: < OR =4; Status: F Test Note: ; DIAGNOSIS CRITERIA MMB ng/ml Relative Index (RI) NON-AMI < or = 5 N/A RIOJAS ZONE > 5 < or = 4 AMI > 5 > 4 Lab Order: Troponin; [facility] 03/05/16 09:59 Test: TROPONIN I; Value: < 0.02; Range: < 0.10; Units: NG/ML; Status: F Test Note: ; Troponin I Reference Interval for [employer] LOCI: 99th Percentile= 0.00-0.045 ng/ml Risk Stratification: <= 0.10 ng/ml Decreased Risk for Adverse Clinical Events. 0.10-1.50 ng/ml Increased Risk for Adverse Clinical Events. Evaluation of additional criterion and/or repeat testing in 2-6 hours is suggested to rule out myocardial damage. >= 1.50 ng/ml Indicative of Myocardial Injury. Lab Order: Cardiac Injury Profile; [facility] 03/05/16 12:31 Test: CPK CREATINE PHOSPHOKINASE; Value: 61; Range: 26-192; Units: U/L; Status: F Test: CK-MB VALUE MASS; Value: 1.0; Range: 0.0-3.6; Units: NG/ML; Status: F Test: MB/CK RELATIVE INDEX; Value: 1.63; Range: < OR =4; Status: F Test Note: ; DIAGNOSIS CRITERIA MMB ng/ml Relative Index (RI) NON-AMI < or = 5 N/A RIOJAS ZONE > 5 < or = 4 AMI > 5 > 4 Lab Order: Troponin; SPEC' 03/05/16 12:31 Test: TROPONIN I; Value: 0.15; Range: < 0.10; Abnormal: High; Units: NG/ML; Status: F Test Note: ; Troponin I Reference Interval for [employer] fitogram: 99th Percentile= 0.00-0.045 ng/ml Risk Stratification: <= 0.10 ng/ml Decreased Risk for Adverse Clinical Events. 0.10-1.50 ng/ml Increased Risk for Adverse Clinical Events. Evaluation of additional criterion and/or repeat testing in 2-6 hours is suggested to rule out myocardial damage. >= 1.50 ng/ml Indicative of Myocardial Injury. Lab Order: THYROID STIMULATING HORMONE; SPEC'M 03/05/16 12:31 Test: THYROID STIMULATING HORMONE; Value: 2.240; Range: 0.358-3.740; Units: uIU/ML; Status: F Lab Order: TROPONIN; [facility] 03/05/16 18:57 Test: TROPONIN I; Value: 0.30; Range: < 0.10; Abnormal: High; Units: NG/ML; Status: F Test Note: ; Troponin I Reference Interval for Siemens Slovan fitogram: 99th Percentile= 0.00-0.045 ng/ml Risk Stratification: <= 0.10 ng/ml Decreased Risk for Adverse Clinical Events. 0.10-1.50 ng/ml Increased Risk for Adverse Clinical Events. Evaluation of additional criterion and/or repeat testing in 2-6 hours is suggested to rule out myocardial damage. >= 1.50 ng/ml Indicative of Myocardial Injury. Lab Order: TROPONIN; SPEC'M 03/06/16 00:12 Test: TROPONIN I; Value: 0.26; Range: < 0.10; Abnormal: Above high normal; Units: NG/ML; Status: F Test Note: ; Troponin I Reference Interval for Siemens Slovan fitogram: 99th Percentile= 0.00-0.045 ng/ml Risk Stratification: <= 0.10 ng/ml Decreased Risk for Adverse Clinical Events. 0.10-1.50 ng/ml Increased Risk for Adverse Clinical Events. Evaluation of additional criterion and/or repeat testing in 2-6 hours is suggested to rule out myocardial damage. >= 1.50 ng/ml Indicative of Myocardial Injury. Lab Order: COMPLETE BLOOD COUNT; SPEC'M 03/06/16 05:35 Test: WHITE BLOOD COUNT; Value: 4.7; Range: 4.0-10.0; Units: K/mm3; Status: F Test: RED BLOOD COUNT; Value: 3.02; Range: 4.00-5.40; Abnormal: Below low normal; Units: M/mm3; Status: F Test: HEMOGLOBIN; Value: 8.8; Range: 12.0-16.0; Units: g/dl; Status: F Test: HEMATOCRIT; Value: 27.4; Range: 36.0-47.0; Abnormal: Below low normal; Units: %; Status: F Test: MEAN CORPUSCULAR VOLUME; Value: 90.8; Range: 80.0-96.0; Units: fl; Status: F Test: MEAN CORPUSCULAR HEMOGLOBIN; Value: 29.2; Range: 27.0-33.0; Units: pg; Status: F Test: MEAN CORPUSCULAR HGB CONC; Value: 32.1; Range: 32.0-36.5; Units: g/dl; Status: F Test: RED CELL DISTRIBUTION WIDTH; Value: 21.0; Range: 11.5-14.5; Abnormal: Above high normal; Units: %; Status: F Test: PLATELET COUNT, AUTOMATED; Value: 73; Range: 150-450; Abnormal: Below low normal; Units: k/mm3; Status: F Lab Order: CARDIAC MARKER PANEL; SPEC'M 03/06/16 05:35 Test: CPK CREATINE PHOSPHOKINASE; Value: 67; Range: 26-192; Units: U/L; Status: F Test: CK-MB VALUE MASS; Value: 1.1; Range: 0.0-3.6; Units: NG/ML; Status: F Test: MB/CK RELATIVE INDEX; Value: 1.64; Range: < OR =4; Status: F Test: TROPONIN I; Value: 0.18; Range: < 0.10; Abnormal: High; Units: NG/ML; Status: F Test Note: ; DIAGNOSIS CRITERIA MMB ng/ml Relative Index (RI) NON-AMI < or = 5 N/A RIOJAS ZONE > 5 < or = 4 AMI > 5 > 4 Lab Order: BASIC METABOLIC PROFILE; [facility]' 03/06/16 05:35 Test: GLUCOSE, FASTING; Value: 113; Range: 70-105; Abnormal: Above high normal; Units: MG/DL; Status: F Test: BLOOD UREA NITROGEN; Value: 17; Range: 7-18; Units: MG/DL; Status: F Test: CREATININE FOR GFR; Value: 0.70; Range: 0.55-1.02; Units: MG/DL; Status: F Test: SODIUM LEVEL; Range: 136-145; Units: MEQ/L; Status: I Test: POTASSIUM SERUM; Range: 3.5-5.1; Units: MEQ/L; Status: I Test: CHLORIDE LEVEL; Range: 98-107; Units: MEQ/L; Status: I Test: CARBON DIOXIDE LEVEL; Range: 21-32; Units: MEQ/L; Status: I Test: ANION GAP; Range: 8-16; Units: MEQ/L; Status: I Test: CALCIUM LEVEL; Range: 8.5-10.1; Units: MG/DL; Status: I Test: GLOMERULAR FILTRATION RATE; Value: > 60.0; Range: >51; Status: F Test: SODIUM LEVEL; Value: 139; Range: 136-145; Units: MEQ/L; Status: F Test: POTASSIUM SERUM; Value: 4.1; Range: 3.5-5.1; Units: MEQ/L; Status: F Test: CHLORIDE LEVEL; Value: 108; Range: 98-107; Abnormal: Above high normal; Units: MEQ/L; Status: F Test: CARBON DIOXIDE LEVEL; Value: 20; Range: 21-32; Abnormal: Below low normal; Units: MEQ/L; Status: F Test: ANION GAP; Value: 11; Range: 8-16; Units: MEQ/L; Status: F Test: CALCIUM LEVEL; Value: 7.8; Range: 8.5-10.1; Abnormal: Below low normal; Units: MG/DL; Status: F Test Note: ; Units are mL/min/1.73 m2 Chronic Kidney Disease Staging per NKF: Stage I & II GFR >=60 Normal to Mildly Decreased Stage III GFR 30-59 Moderately Decreased Stage IV GFR 15-29 Severely Decreased Stage V GFR <15 Very Little GFR Left ESRD GFR <15 on HELICOPTER PILOT INSTRUCTOR Outcome: 13:30 Decision to Hospitalize by Provider. fg 03/06 14:46 Patient left the ED. [facility] Signatures: Jesús Truong, RN RN Laura Gamez, RN RN Noah Deutsch, Reg Reg lg Pat Lucero RN RN hs1 Mian, Patsy, RN RN sls1 Massiel Moon,RN RN Evette Giron, MANAGER COLLECTION MANAGER COLLECTION Colton Kaur RN RN jmb Dunaway, EmilyRN RN Kelechi Jurado, MANAGER COLLECTION MANAGER COLLECTION Ozzie Bourne rn1 Chey Keene MD MD fg Redder, Kathie klr Becker, Brittney, MANAGER COLLECTION MANAGER COLLECTION juliannab Chart Complete [id number]
--- NOTE | 2016-03-10 07:48 | EDDOCDS ---
Physician Documentation [facility] Name: France Zafar Age: 56 yrs Sex: Female : 1960 Arrival Date: 03/05/2016 Time: 09:40 Bed Admit Hold Private MD: Slava [facility] [place] Disposition: 03/05/16 13:30 Hospitalization ordered by Prachi Devi for Inpatient Admission. Preliminary diagnosis is Chest pain, unspecified. - Bed requested for PCU. - Status is Inpatient Admission. bcj - Condition is Stable. - Problem is new. - Symptoms have improved. Historical: - Allergies: SULFA (SULFONAMIDES); - Home Meds: 1. nadolol 40 mg oral tab 1 tab once daily (Last dose: 03/04/2016 21:00) 2. furosemide 20 mg Oral tab 1 tab once daily 3. rifaximin 550 mg oral tab 1 tab 2 times per day 4. montelukast 10 mg oral tab 1 tab once daily 5. spironolactone 25 mg Oral tab 1 tab once daily 6. Symbicort 160-4.5 mcg/actuation inhalation HFAA 2 puffs 2 times per day 7. pantoprazole 40 mg oral grps 1 packet once daily 8. ProAir HFA 90 mcg/actuation inhalation HFAA 1 puff every 4 hours 9. prednisone 20 mg Oral tab once daily 10. azathioprine 50 mg Oral tab once daily - PMHx: espohageal varicies; GERD; Asthma; Hepatitis C; - PSHx: Tubal ligation; 5 liver biopsies; Tonsillectomy; parencetesis; - Social history: Smoking status: Patient states was never smoker of tobacco. No barriers to communication noted, The patient speaks fluent Beninese, Speaks appropriately for age, Smoking status: . - Family history: Not pertinent. - : The pt / caregiver states he / she is not on anticoagulants. Home medication list is obtained from the patient, family members. - Exposure Risk Screening:: None identified. Vital Signs: 03/05 09:44 BP 84 / 65; Pulse 148; Resp 22; Pulse Ox 92% on R/A; Weight 78.93 kg / 174.01 lbs (R); elp Height 4 ft. 11 in. (149.86 cm) (R); 10:10 BP 93 / 63 (auto/); ead 10:10 Pulse 144 MON; Resp 16; Pulse Ox 95% on R/A; ead 10:13 Pulse 144 MON; Pulse Ox 96% ; ead 10:14 BP 94 / 61 (auto/); ead 10:14 Pulse 144 MON; Pulse Ox 97% ; ead 10:15 Pulse 87 MON; Pulse Ox 98% ; ead 10:16 Pulse 83 MON; Pulse Ox 98% ; ead 11:16 Pulse 76 MON; Resp 16; Pulse Ox 96% on R/A; ead 11:37 Pulse 72 MON; Pulse Ox 95% ; ead 11:40 BP 112 / 70 (auto/); ead 11:40 Pulse 72 MON; Pulse Ox 94% ; ead 12:00 BP 109 / 64 (auto/); ead 12:00 Pulse 72 MON; Pulse Ox 96% ; ead 12:20 BP 119 / 65 (auto/); ead 12:20 Pulse 72 MON; Pulse Ox 95% ; ead 13:02 Pulse 71 MON; Pulse Ox 97% ; ead 13:32 Pulse 71 MON; Pulse Ox 96% ; ead 13:56 Pulse 70 MON; Pulse Ox 96% ; ead 14:33 BP 139 / 60 (auto/); ead 14:37 Pulse 72 MON; Pulse Ox 97% ; ead 15:00 BP 118 / 67 (auto/); ead 15:00 Pulse Ox 95% ; ead 15:30 BP 90 / 54 (auto/); ead 15:30 Pulse 80 MON; Resp 18; Pulse Ox 96% on R/A; ead 15:34 BP 90 / 53 (auto/); ead 15:34 Pulse Ox 95% ; ead 15:45 BP 99 / 62 (auto/); ead 15:45 Pulse 74 MON; Pulse Ox 95% ; ead 16:00 BP 103 / 53 (auto/); ead 16:02 Pulse 75 MON; Resp 16; Pulse Ox 95% on R/A; ead 16:15 BP 107 / 58 (auto/); dls 16:15 Pulse 73 MON; Pulse Ox 95% ; dls 16:30 BP 111 / 56 (auto/); dls 16:30 Pulse 73 MON; Pulse Ox 95% ; dls 16:45 BP 105 / 58 (auto/); dls 16:45 Pulse 71 MON; Pulse Ox 96% ; dls 17:42 BP 110 / 59 (auto/); pml 17:44 Pulse 70 MON; Pulse Ox 95% ; pml 09:44 Body Mass Index 35.14 (78.93 kg, 149.86 cm) elp MDM: 09:44 ECG WITH READING ER PHYS+CARDIAG ordered. EDMS 09:46 Aspirin Chewable Tablet 324 mg PO once ordered. fg 09:46 Server Support Technician/Pulse Ox/q 30 min VS ordered. fg 09:46 IV Saline Lock ordered. fg 09:46 Rhythm Strip to chart ordered. fg 09:46 Undress patient appropriately for examination ordered. fg 09:47 B-Type Natiuretic Peptide Ordered. EDMS 09:47 Basic Metabolic Profile Ordered. EDMS 09:47 CBC with Diff Ordered. EDMS 09:48 Cardiac Injury Profile Ordered. EDMS 09:48 Troponin Ordered. EDMS 09:48 portable chest Ordered. EDMS 10:03 Adenosine 6 mg IVP once ordered. fg 10:03 Adenosine 12 mg IVP once ordered. fg 10:03 NS 0.9% 1000 ml IV at bolus once ordered. fg 10:04 Misc. Nursing Order ordered. fg 10:08 Financial registration complete. lg 10:10 ECG WITH READING ER PHYS+CARDIAG ordered. EDMS 10:13 [facility] Payment Agreement was scanned into [employer] and attached to record. lg 12:03 Cardiac Injury Profile Ordered. EDMS 12:03 Troponin Ordered. EDMS 12:04 ECG WITH READING ER PHYS+CARDIAG ordered. EDMS 13:31 BED REQUEST+ADM ordered. EDMS 13:55 Admission / Observation Status ordered. EDMS 13:55 ECHOCARD,DOPPLER/COLOR FLOW ordered. EDMS 13:56 2 GRAM SODIUM DIET ordered. EDMS 13:57 THYROID STIMULATING HORMONE Ordered. EDMS 13:57 TROPONIN Ordered. EDMS 17:44 T-Sheet-- Draft Copy was scanned into [employer] and attached to record. klr 19:32 TROPONIN Ordered. EDMS 20:02 ELECTROCARDIOGRAM ADULT ordered. EDMS 03/06 07:00 COMPLETE BLOOD COUNT Ordered. EDMS 07:03 CARDIAC MARKER PANEL Ordered. EDMS 07:03 BASIC METABOLIC PROFILE Ordered. EDMS 13:38 CBC WITH DIFFERENTIAL Ordered. EDMS Administered Medications: 03/05 10:12 Drug: Adenosine 6 mg [adenosine 3 mg/mL intravenous solution (2 mL)] Route: IVP; Site: ead right antecubital; 10:15 Follow up: Response: Cardiac Rhythm changed; No Adverse Reaction ead 10:19 Drug: NS 0.9% 1000 ml [sodium chloride 0.9 % intravenous solution] Route: IV; Rate: ead bolus; Site: right antecubital; 10:21 Not Given (Patient Refused): Aspirin Chewable Tablet 324 mg PO once ead 10:22 Not Given (pt responded to first dose, second dose not needed): Adenosine 12 mg IVP onceead Signatures: Dispatcher [employer] EDJesús Tyson, RN RN Noah Manzo, Reg Reg lg Pat Lucero RN RN hs1 Brook VasquezRN Jomar Morales RN RN mts Gill, Frances, MD MD fg Redder, Kathie klr The chart was reviewed and I authenticate all verbal orders and agree with the evaluation and treatment provided.Corrections: (The following items were deleted from the chart) 03/06 07:04 03/05 19:54 TROPONIN ordered. EDMS EDMS 03/06 07:04 07:00 CARDIAC MARKER PANEL ordered. EDMS EDMS 07: 07:00 BASIC METABOLIC PROFILE ordered. EDUT EDMS : 03/05 10:13 [facility] Payment Agreement lg 17:44 T-Sheet-- Draft Copy nupur Chart Complete MTDD
--- NOTE | 2016-03-10 07:48 | EDDOCDS ---
Physician Documentation [facility] Name: France Zafar Age: 56 yrs Sex: Female : 1960 Arrival Date: 03/05/2016 Time: 09:40 Bed Admit Hold Private MD: Slava [facility] [place] Disposition: 03/05/16 13:30 Hospitalization ordered by Prachi Devi for Inpatient Admission. Preliminary diagnosis is Chest pain, unspecified. - Bed requested for PCU. - Status is Inpatient Admission. bcj - Condition is Stable. - Problem is new. - Symptoms have improved. Historical: - Allergies: SULFA (SULFONAMIDES); - Home Meds: 1. nadolol 40 mg oral tab 1 tab once daily (Last dose: 03/04/2016 21:00) 2. furosemide 20 mg Oral tab 1 tab once daily 3. rifaximin 550 mg oral tab 1 tab 2 times per day 4. montelukast 10 mg oral tab 1 tab once daily 5. spironolactone 25 mg Oral tab 1 tab once daily 6. Symbicort 160-4.5 mcg/actuation inhalation HFAA 2 puffs 2 times per day 7. pantoprazole 40 mg oral grps 1 packet once daily 8. ProAir HFA 90 mcg/actuation inhalation HFAA 1 puff every 4 hours 9. prednisone 20 mg Oral tab once daily 10. azathioprine 50 mg Oral tab once daily - PMHx: espohageal varicies; GERD; Asthma; Hepatitis C; - PSHx: Tubal ligation; 5 liver biopsies; Tonsillectomy; parencetesis; - Social history: Smoking status: Patient states was never smoker of tobacco. No barriers to communication noted, The patient speaks fluent Burmese, Speaks appropriately for age, Smoking status: . - Family history: Not pertinent. - : The pt / caregiver states he / she is not on anticoagulants. Home medication list is obtained from the patient, family members. - Exposure Risk Screening:: None identified. Vital Signs: 03/05 09:44 BP 84 / 65; Pulse 148; Resp 22; Pulse Ox 92% on R/A; Weight 78.93 kg / 174.01 lbs (R); elp Height 4 ft. 11 in. (149.86 cm) (R); 10:10 BP 93 / 63 (auto/); ead 10:10 Pulse 144 MON; Resp 16; Pulse Ox 95% on R/A; ead 10:13 Pulse 144 MON; Pulse Ox 96% ; ead 10:14 BP 94 / 61 (auto/); ead 10:14 Pulse 144 MON; Pulse Ox 97% ; ead 10:15 Pulse 87 MON; Pulse Ox 98% ; ead 10:16 Pulse 83 MON; Pulse Ox 98% ; ead 11:16 Pulse 76 MON; Resp 16; Pulse Ox 96% on R/A; ead 11:37 Pulse 72 MON; Pulse Ox 95% ; ead 11:40 BP 112 / 70 (auto/); ead 11:40 Pulse 72 MON; Pulse Ox 94% ; ead 12:00 BP 109 / 64 (auto/); ead 12:00 Pulse 72 MON; Pulse Ox 96% ; ead 12:20 BP 119 / 65 (auto/); ead 12:20 Pulse 72 MON; Pulse Ox 95% ; ead 13:02 Pulse 71 MON; Pulse Ox 97% ; ead 13:32 Pulse 71 MON; Pulse Ox 96% ; ead 13:56 Pulse 70 MON; Pulse Ox 96% ; ead 14:33 BP 139 / 60 (auto/); ead 14:37 Pulse 72 MON; Pulse Ox 97% ; ead 15:00 BP 118 / 67 (auto/); ead 15:00 Pulse Ox 95% ; ead 15:30 BP 90 / 54 (auto/); ead 15:30 Pulse 80 MON; Resp 18; Pulse Ox 96% on R/A; ead 15:34 BP 90 / 53 (auto/); ead 15:34 Pulse Ox 95% ; ead 15:45 BP 99 / 62 (auto/); ead 15:45 Pulse 74 MON; Pulse Ox 95% ; ead 16:00 BP 103 / 53 (auto/); ead 16:02 Pulse 75 MON; Resp 16; Pulse Ox 95% on R/A; ead 16:15 BP 107 / 58 (auto/); dls 16:15 Pulse 73 MON; Pulse Ox 95% ; dls 16:30 BP 111 / 56 (auto/); dls 16:30 Pulse 73 MON; Pulse Ox 95% ; dls 16:45 BP 105 / 58 (auto/); dls 16:45 Pulse 71 MON; Pulse Ox 96% ; dls 17:42 BP 110 / 59 (auto/); pml 17:44 Pulse 70 MON; Pulse Ox 95% ; pml 09:44 Body Mass Index 35.14 (78.93 kg, 149.86 cm) elp MDM: 09:44 ECG WITH READING ER PHYS+CARDIAG ordered. EDMS 09:46 Aspirin Chewable Tablet 324 mg PO once ordered. fg 09:46 C Consultant/Pulse Ox/q 30 min VS ordered. fg 09:46 IV Saline Lock ordered. fg 09:46 Rhythm Strip to chart ordered. fg 09:46 Undress patient appropriately for examination ordered. fg 09:47 B-Type Natiuretic Peptide Ordered. EDMS 09:47 Basic Metabolic Profile Ordered. EDMS 09:47 CBC with Diff Ordered. EDMS 09:48 Cardiac Injury Profile Ordered. EDMS 09:48 Troponin Ordered. EDMS 09:48 portable chest Ordered. EDMS 10:03 Adenosine 6 mg IVP once ordered. fg 10:03 Adenosine 12 mg IVP once ordered. fg 10:03 NS 0.9% 1000 ml IV at bolus once ordered. fg 10:04 Misc. Nursing Order ordered. fg 10:08 Financial registration complete. lg 10:10 ECG WITH READING ER PHYS+CARDIAG ordered. EDMS 10:13 [place]-[facility] Payment Agreement was scanned into [employer] and attached to record. lg 12:03 Cardiac Injury Profile Ordered. EDMS 12:03 Troponin Ordered. EDMS 12:04 ECG WITH READING ER PHYS+CARDIAG ordered. EDMS 13:31 BED REQUEST+ADM ordered. EDMS 13:55 Admission / Observation Status ordered. EDMS 13:55 ECHOCARD,DOPPLER/COLOR FLOW ordered. EDMS 13:56 2 GRAM SODIUM DIET ordered. EDMS 13:57 THYROID STIMULATING HORMONE Ordered. EDMS 13:57 TROPONIN Ordered. EDMS 17:44 T-Sheet-- Draft Copy was scanned into [employer] and attached to record. klr 19:32 TROPONIN Ordered. EDMS 20:02 ELECTROCARDIOGRAM ADULT ordered. EDMS 03/06 07:00 COMPLETE BLOOD COUNT Ordered. EDMS 07:03 CARDIAC MARKER PANEL Ordered. EDMS 07:03 BASIC METABOLIC PROFILE Ordered. EDMS 13:38 CBC WITH DIFFERENTIAL Ordered. EDMS Administered Medications: 03/05 10:12 Drug: Adenosine 6 mg [adenosine 3 mg/mL intravenous solution (2 mL)] Route: IVP; Site: ead right antecubital; 10:15 Follow up: Response: Cardiac Rhythm changed; No Adverse Reaction ead 10:19 Drug: NS 0.9% 1000 ml [sodium chloride 0.9 % intravenous solution] Route: IV; Rate: ead bolus; Site: right antecubital; 10:21 Not Given (Patient Refused): Aspirin Chewable Tablet 324 mg PO once ead 10:22 Not Given (pt responded to first dose, second dose not needed): Adenosine 12 mg IVP onceead Signatures: Dispatcher [employer] EDJesús Tyson, RN RN Noah Manzo, Reg Reg lg Pat Lucero RN RN hs1 Brook VasquezRN Jomar Morales RN RN mts Gill, Frances, MD MD fg Redder, Kathie klr The chart was reviewed and I authenticate all verbal orders and agree with the evaluation and treatment provided.Corrections: (The following items were deleted from the chart) 03/06 07:04 03/05 19:54 TROPONIN ordered. EDMS EDMS 03/06 07:04 07:00 CARDIAC MARKER PANEL ordered. EDMS EDMS 07: 07:00 BASIC METABOLIC PROFILE ordered. EDOH EDMS : 03/05 10:13 [facility] Payment Agreement lg 17:44 T-Sheet-- Draft Copy nupur Chart Complete MTDD
--- NOTE | 2016-03-10 07:49 | EDDOCDS ---
Nurse's Notes [facility] Name: France Zafar Age: 56 yrs Sex: Female : 1960 Arrival Date: 03/05/2016 Time: 09:40 Bed Admit Hold Private MD: Slava [place] [facility] [place] Diagnosis: Chest pain, unspecified Presentation: 03/05 09:48 Presenting complaint: Patient states: chest pain began around 0600. Patient states has hs1 history of heart murmur. Denies ever knowing if in A-fib. Aspirin was not taken prior to arrival. Adult Sepsis Screening: The patient does not have new or worsening altered mentation. Patient's respiratory rate is less than 22. Systolic blood pressure is greater than 100. Patient has a qSOFA score of 0- Negative Sepsis Screen. Suicide/Homicide risk assessment- the patient denies having any suicidal and/or homicidal ideations and does not present with any other emotional, behavioral or mental health complaints. Status: Patient is not a ramp service employee or dependent. Transition of care: patient was not received from another setting of care. 09:48 Acuity: CHRISTIANNE Level 2 hs1 09:48 Method Of Arrival: Walkin/Carried/Asstd hs1 09:48 Red Flag criteria, patient assessed and taken directly to a bed. hs1 Triage Assessment: 09:50 General: Appears in no apparent distress, well nourished, well groomed, Behavior is ead appropriate for age, cooperative. Pain: Location: chest Pain currently is 7 out of 10 on a pain scale. At worst was 10 out of 10 on a pain scale. Pain: Quality of pain is described as heavy. HIV screening NA for this visit Offered previously. Neurological: Level of Consciousness is awake, alert, Oriented to person, place, time. Cardiovascular: Chest pain is described as Pain is 7 out of 10 on a pain scale. radiates Does not radiate. episodes are continuous began 4 hours prior to arrival. Cardiovascular: Reports palpitations. Respiratory: Airway is patent Respiratory effort is even, unlabored. Derm: Skin is pink, warm & dry. Historical: - Allergies: SULFA (SULFONAMIDES); - Home Meds: 1. nadolol 40 mg oral tab 1 tab once daily (Last dose: 03/04/2016 21:00) 2. furosemide 20 mg Oral tab 1 tab once daily 3. rifaximin 550 mg oral tab 1 tab 2 times per day 4. montelukast 10 mg oral tab 1 tab once daily 5. spironolactone 25 mg Oral tab 1 tab once daily 6. Symbicort 160-4.5 mcg/actuation inhalation HFAA 2 puffs 2 times per day 7. pantoprazole 40 mg oral grps 1 packet once daily 8. ProAir HFA 90 mcg/actuation inhalation HFAA 1 puff every 4 hours 9. prednisone 20 mg Oral tab once daily 10. azathioprine 50 mg Oral tab once daily - PMHx: espohageal varicies; GERD; Asthma; Hepatitis C; - PSHx: Tubal ligation; 5 liver biopsies; Tonsillectomy; parencetesis; - Social history: Smoking status: Patient states was never smoker of tobacco. No barriers to communication noted, The patient speaks fluent [place]arag[place], Speaks appropriately for age, Smoking status: . - Family history: Not pertinent. - : The pt / caregiver states he / she is not on anticoagulants. Home medication list is obtained from the patient, family members. - Exposure Risk Screening:: None identified. Assessment: 10:20 Reassessment: Patient states feeling better. Patient states symptoms have improved. ead General: Appears in no apparent distress, comfortable, Behavior is appropriate for age, cooperative. Pain: Pain currently is 2 out of 10 on a pain scale. Cardiovascular: Rhythm is regular Denies palpitations. Derm: Skin is pink, warm & dry. 11:30 General: Appears in no apparent distress, comfortable, Behavior is appropriate for age, ead cooperative, pleasant. Pain: Denies pain. Neurological: No deficits noted. Neurological: Denies dizziness. Cardiovascular: Capillary refill < 3 seconds Rhythm is sinus rhythm Chest pain is denied. Cardiovascular: Denies palpitations. Respiratory: Denies shortness of breath. Derm: Skin is pink, warm & dry. 12:30 General: Appears in no apparent distress, comfortable, Behavior is appropriate for age, ead cooperative, pleasant. Respiratory: Airway is patent Respiratory effort is even, unlabored. Derm: Skin is pink, warm & dry. 13:30 General: Appears in no apparent distress, to be sleeping. Cardiovascular: Rhythm is ead sinus rhythm. Respiratory: Airway is patent Respiratory effort is even, unlabored. 14:38 General: Appears in no apparent distress, comfortable, Behavior is appropriate for age, ead cooperative, pt ambulated to bathroom without difficulty. updated of bed status for hospitalization. . Pain: Denies pain. Cardiovascular: Rhythm is sinus rhythm. Respiratory: Airway is patent Respiratory effort is even, unlabored. Derm: Skin is pink, warm & dry. 16:00 General: Appears in no apparent distress, comfortable, Behavior is appropriate for age, ead cooperative. Neurological: No deficits noted. Cardiovascular: Rhythm is sinus rhythm. Respiratory: Airway is patent Respiratory effort is even, unlabored. Derm: Skin is pink, warm & dry. 17:50 General: Appears in no apparent distress, Behavior is appropriate for age, cooperative. pml Pain: Denies pain. Neurological: Level of Consciousness is awake, alert, Oriented to person, place, time. Cardiovascular: Capillary refill < 3 seconds Rhythm is sinus rhythm No ectopy. Respiratory: Airway is patent Respiratory effort is even, unlabored. GI: Abdomen is non- distended obese. Derm: Skin is pink, warm & dry. Vital Signs: 09:44 BP 84 / 65; Pulse 148; Resp 22; Pulse Ox 92% on R/A; Weight 78.93 kg (R); Height 4 ft. elp 11 in. (149.86 cm) (R); 10:10 BP 93 / 63 (auto/); ead 10:10 Pulse 144 MON; Resp 16; Pulse Ox 95% on R/A; ead 10:13 Pulse 144 MON; Pulse Ox 96% ; ead 10:14 BP 94 / 61 (auto/); ead 10:14 Pulse 144 MON; Pulse Ox 97% ; ead 10:15 Pulse 87 MON; Pulse Ox 98% ; ead 10:16 Pulse 83 MON; Pulse Ox 98% ; ead 11:16 Pulse 76 MON; Resp 16; Pulse Ox 96% on R/A; ead 11:37 Pulse 72 MON; Pulse Ox 95% ; ead 11:40 BP 112 / 70 (auto/); ead 11:40 Pulse 72 MON; Pulse Ox 94% ; ead 12:00 BP 109 / 64 (auto/); ead 12:00 Pulse 72 MON; Pulse Ox 96% ; ead 12:20 BP 119 / 65 (auto/); ead 12:20 Pulse 72 MON; Pulse Ox 95% ; ead 13:02 Pulse 71 MON; Pulse Ox 97% ; ead 13:32 Pulse 71 MON; Pulse Ox 96% ; ead 13:56 Pulse 70 MON; Pulse Ox 96% ; ead 14:33 BP 139 / 60 (auto/); ead 14:37 Pulse 72 MON; Pulse Ox 97% ; ead 15:00 BP 118 / 67 (auto/); ead 15:00 Pulse Ox 95% ; ead 15:30 BP 90 / 54 (auto/); ead 15:30 Pulse 80 MON; Resp 18; Pulse Ox 96% on R/A; ead 15:34 BP 90 / 53 (auto/); ead 15:34 Pulse Ox 95% ; ead 15:45 BP 99 / 62 (auto/); ead 15:45 Pulse 74 MON; Pulse Ox 95% ; ead 16:00 BP 103 / 53 (auto/); ead 16:02 Pulse 75 MON; Resp 16; Pulse Ox 95% on R/A; ead 16:15 BP 107 / 58 (auto/); dls 16:15 Pulse 73 MON; Pulse Ox 95% ; dls 16:30 BP 111 / 56 (auto/); dls 16:30 Pulse 73 MON; Pulse Ox 95% ; dls 16:45 BP 105 / 58 (auto/); dls 16:45 Pulse 71 MON; Pulse Ox 96% ; dls 17:42 BP 110 / 59 (auto/); pml 17:44 Pulse 70 MON; Pulse Ox 95% ; pml 09:44 Body Mass Index 35.14 (78.93 kg, 149.86 cm) elp Vitals: 09:44 Log In Time: March 05, 2016 at 09:42. RN notified that patient meets Red Flag elp criteria. ED Course: 09:43 Patient visited by Evette Fink PCA. elp 09:43 Patient moved to Waiting elp 09:44 Brook Vasquez,LUDWIN is Primary Nurse. elp 09:44 MICHAEL Pedersen is Private Physician. elp 09:44 Patient visited by Evette Fink PCA. elp 09:44 Patient moved to 3 elp 09:45 Chey Keene MD is Attending Physician. fg 09:45 Patient visited by Chey Keene MD. fg 09:49 Triage Initiated hs1 09:54 EKG done. (by ED staff). Reviewed by Chey Keene MD. rn1 10:03 B-Type Natiuretic Peptide Sent. ead 10:03 Troponin Sent. ead 10:03 Cardiac Injury Profile Sent. ead 10:03 CBC with Diff Sent. ead 10:03 Basic Metabolic Profile Sent. ead 10:13 [facility] Payment Agreement was scanned into [employer] and attached to record. lg 10:17 EKG done. (by ED staff). Reviewed by Chey Keene MD. jrd 10:26 Patient visited by Brook Vasquez,RN. ead 11:38 Patient visited by Brook Vasquez,RN. ead 12:12 EKG done. (by ED staff). Reviewed by Chey Keene MD. rn1 12:24 Patient visited by Brook Vasquez,LUDWIN. ead 12:33 Patient visited by Brook Vasquez,LUDWIN. ead 12:33 Troponin Sent. ead 12:33 Cardiac Injury Profile Sent. ead 13:30 Prachi Devi is Hospitalizing Provider. fg 16:55 Patient moved to 19 dls 17:44 T-Sheet-- Draft Copy was scanned into [employer] and attached to record. klr 17:52 Patient visited by Massiel Moon,LUDWIN. pml 19:15 Patient moved to Admit Hold [facility]1 03/06 02:54 Primary Nurse role handed off by Brook Vasquez,LUDWIN parker 12:49 Patient visited by Liz Granados PCA. bnb 12:49 Diet: Patient given regular meal. Tolerated well. bnb Administered Medications: 03/05 10:12 Drug: Adenosine 6 mg [adenosine 3 mg/mL intravenous solution (2 mL)] Route: IVP; Site: ead right antecubital; 10:15 Follow up: Response: Cardiac Rhythm changed; No Adverse Reaction ead 10:19 Drug: NS 0.9% 1000 ml [sodium chloride 0.9 % intravenous solution] Route: IV; Rate: ead bolus; Site: right antecubital; 10:21 Not Given (Patient Refused): Aspirin Chewable Tablet 324 mg PO once ead 10:22 Not Given (pt responded to first dose, second dose not needed): Adenosine 12 mg IVP onceead Order Results: Lab Order: B-Type Natiuretic Peptide; SPEC'M 03/05/16 10:00 Test: BRAIN NATRIURETIC PEPTIDE; Value: 56.4; Range: <100; Units: PG/ML; Status: F Lab Order: Basic Metabolic Profile; SPEC'03/05/16 09:59 Test: GLUCOSE, FASTING; Value: 164; Range: 70-105; Abnormal: Above high normal; Units: MG/DL; Status: F Test: BLOOD UREA NITROGEN; Value: 22; Range: 7-18; Abnormal: Above high normal; Units: MG/DL; Status: F Test: CREATININE FOR GFR; Value: 1.05; Range: 0.55-1.02; Abnormal: Above high normal; Units: MG/DL; Status: F Test: GLOMERULAR FILTRATION RATE; Value: 57.7; Range: >51; Status: F Test: SODIUM LEVEL; Value: 142; Range: 136-145; Units: MEQ/L; Status: F Test: POTASSIUM SERUM; Value: 4.4; Range: 3.5-5.1; Units: MEQ/L; Status: F Test: CHLORIDE LEVEL; Value: 106; Range: 98-107; Units: MEQ/L; Status: F Test: CARBON DIOXIDE LEVEL; Value: 26; Range: 21-32; Units: MEQ/L; Status: F Test: ANION GAP; Value: 10; Range: 8-16; Units: MEQ/L; Status: F Test: CALCIUM LEVEL; Value: 8.9; Range: 8.5-10.1; Units: MG/DL; Status: F Test Note: ; Units are mL/min/1.73 m2 Chronic Kidney Disease Staging per NKF: Stage I & II GFR >=60 Normal to Mildly Decreased Stage III GFR 30-59 Moderately Decreased Stage IV GFR 15-29 Severely Decreased Stage V GFR <15 Very Little GFR Left ESRD GFR <15 on TURNING MACHINE OPERATOR HELPER Lab Order: CBC with Diff; SPEC'03/05/16 10:00 Test: WHITE BLOOD COUNT; Value: 8.5; Range: 4.0-10.0; Units: K/mm3; Status: F Test: RED BLOOD COUNT; Value: 3.90; Range: 4.00-5.40; Abnormal: Below low normal; Units: M/mm3; Status: F Test: HEMOGLOBIN; Value: 11.4; Range: 12.0-16.0; Abnormal: Below low normal; Units: g/dl; Status: F Test: HEMATOCRIT; Value: 35.8; Range: 36.0-47.0; Abnormal: Below low normal; Units: %; Status: F Test: MEAN CORPUSCULAR VOLUME; Value: 91.8; Range: 80.0-96.0; Units: fl; Status: F Test: MEAN CORPUSCULAR HEMOGLOBIN; Value: 29.2; Range: 27.0-33.0; Units: pg; Status: F Test: MEAN CORPUSCULAR HGB CONC; Value: 31.8; Range: 32.0-36.5; Abnormal: Below low normal; Units: g/dl; Status: F Test: RED CELL DISTRIBUTION WIDTH; Value: 21.0; Range: 11.5-14.5; Abnormal: Above high normal; Units: %; Status: F Test: PLATELET COUNT, AUTOMATED; Value: 119; Range: 150-450; Abnormal: Below low normal; Units: k/mm3; Status: F Test: NEUTROPHILS %; Value: 71.9; Range: 36.0-66.0; Abnormal: Above high normal; Units: %; Status: F Test: LYMPH %; Value: 22.9; Range: 24.0-44.0; Abnormal: Below low normal; Units: %; Status: F Test: MONO %; Value: 2.5; Range: 0.0-5.0; Units: %; Status: F Test: EOS %; Value: 0.7; Range: 0.0-3.0; Units: %; Status: F Test: BASO %; Value: 0.6; Range: 0.0-1.0; Units: %; Status: F Test: LARGE UNSTAINED CELL %; Value: 1.3; Range: 0.0-4.0; Units: %; Status: F Test: NEUTROPHILS #; Value: 6.1; Range: 1.8-7.7; Units: K/mm3; Status: F Test: LYMPH #; Value: 2.0; Range: 1.5-4.5; Units: K/mm3; Status: F Test: MONO #; Value: 0.2; Range: 0.0-0.8; Units: K/mm3; Status: F Test: EOS #; Value: 0.1; Range: 0.0-0.50; Units: K/mm3; Status: F Test: BASO #; Value: 0.0; Range: 0.0-0.2; Units: K/mm3; Status: F Test: LARGE UNSTAINED CELL #; Value: 0.1; Range: 0.0-0.4; Units: K/mm3; Status: F Lab Order: Cardiac Injury Profile; [facility] 03/05/16 09:59 Test: CPK CREATINE PHOSPHOKINASE; Value: 96; Range: 26-192; Units: U/L; Status: F Test: CK-MB VALUE MASS; Value: 1.2; Range: 0.0-3.6; Units: NG/ML; Status: F Test: MB/CK RELATIVE INDEX; Value: 1.25; Range: < OR =4; Status: F Test Note: ; DIAGNOSIS CRITERIA MMB ng/ml Relative Index (RI) NON-AMI < or = 5 N/A RIOJAS ZONE > 5 < or = 4 AMI > 5 > 4 Lab Order: Troponin; [facility] 03/05/16 09:59 Test: TROPONIN I; Value: < 0.02; Range: < 0.10; Units: NG/ML; Status: F Test Note: ; Troponin I Reference Interval for [employer] LOCI: 99th Percentile= 0.00-0.045 ng/ml Risk Stratification: <= 0.10 ng/ml Decreased Risk for Adverse Clinical Events. 0.10-1.50 ng/ml Increased Risk for Adverse Clinical Events. Evaluation of additional criterion and/or repeat testing in 2-6 hours is suggested to rule out myocardial damage. >= 1.50 ng/ml Indicative of Myocardial Injury. Lab Order: Cardiac Injury Profile; [facility] 03/05/16 12:31 Test: CPK CREATINE PHOSPHOKINASE; Value: 61; Range: 26-192; Units: U/L; Status: F Test: CK-MB VALUE MASS; Value: 1.0; Range: 0.0-3.6; Units: NG/ML; Status: F Test: MB/CK RELATIVE INDEX; Value: 1.63; Range: < OR =4; Status: F Test Note: ; DIAGNOSIS CRITERIA MMB ng/ml Relative Index (RI) NON-AMI < or = 5 N/A RIOJAS ZONE > 5 < or = 4 AMI > 5 > 4 Lab Order: Troponin; SPEC' 03/05/16 12:31 Test: TROPONIN I; Value: 0.15; Range: < 0.10; Abnormal: High; Units: NG/ML; Status: F Test Note: ; Troponin I Reference Interval for [employer]: 99th Percentile= 0.00-0.045 ng/ml Risk Stratification: <= 0.10 ng/ml Decreased Risk for Adverse Clinical Events. 0.10-1.50 ng/ml Increased Risk for Adverse Clinical Events. Evaluation of additional criterion and/or repeat testing in 2-6 hours is suggested to rule out myocardial damage. >= 1.50 ng/ml Indicative of Myocardial Injury. Lab Order: THYROID STIMULATING HORMONE; SPEC'M 03/05/16 12:31 Test: THYROID STIMULATING HORMONE; Value: 2.240; Range: 0.358-3.740; Units: uIU/ML; Status: F Lab Order: TROPONIN; [facility] 03/05/16 18:57 Test: TROPONIN I; Value: 0.30; Range: < 0.10; Abnormal: High; Units: NG/ML; Status: F Test Note: ; Troponin I Reference Interval for [employer]: 99th Percentile= 0.00-0.045 ng/ml Risk Stratification: <= 0.10 ng/ml Decreased Risk for Adverse Clinical Events. 0.10-1.50 ng/ml Increased Risk for Adverse Clinical Events. Evaluation of additional criterion and/or repeat testing in 2-6 hours is suggested to rule out myocardial damage. >= 1.50 ng/ml Indicative of Myocardial Injury. Lab Order: TROPONIN; SPEC'M 03/06/16 00:12 Test: TROPONIN I; Value: 0.26; Range: < 0.10; Abnormal: Above high normal; Units: NG/ML; Status: F Test Note: ; Troponin I Reference Interval for [employer]: 99th Percentile= 0.00-0.045 ng/ml Risk Stratification: <= 0.10 ng/ml Decreased Risk for Adverse Clinical Events. 0.10-1.50 ng/ml Increased Risk for Adverse Clinical Events. Evaluation of additional criterion and/or repeat testing in 2-6 hours is suggested to rule out myocardial damage. >= 1.50 ng/ml Indicative of Myocardial Injury. Lab Order: COMPLETE BLOOD COUNT; SPEC'M 03/06/16 05:35 Test: WHITE BLOOD COUNT; Value: 4.7; Range: 4.0-10.0; Units: K/mm3; Status: F Test: RED BLOOD COUNT; Value: 3.02; Range: 4.00-5.40; Abnormal: Below low normal; Units: M/mm3; Status: F Test: HEMOGLOBIN; Value: 8.8; Range: 12.0-16.0; Units: g/dl; Status: F Test: HEMATOCRIT; Value: 27.4; Range: 36.0-47.0; Abnormal: Below low normal; Units: %; Status: F Test: MEAN CORPUSCULAR VOLUME; Value: 90.8; Range: 80.0-96.0; Units: fl; Status: F Test: MEAN CORPUSCULAR HEMOGLOBIN; Value: 29.2; Range: 27.0-33.0; Units: pg; Status: F Test: MEAN CORPUSCULAR HGB CONC; Value: 32.1; Range: 32.0-36.5; Units: g/dl; Status: F Test: RED CELL DISTRIBUTION WIDTH; Value: 21.0; Range: 11.5-14.5; Abnormal: Above high normal; Units: %; Status: F Test: PLATELET COUNT, AUTOMATED; Value: 73; Range: 150-450; Abnormal: Below low normal; Units: k/mm3; Status: F Lab Order: CARDIAC MARKER PANEL; SPEC'M 03/06/16 05:35 Test: CPK CREATINE PHOSPHOKINASE; Value: 67; Range: 26-192; Units: U/L; Status: F Test: CK-MB VALUE MASS; Value: 1.1; Range: 0.0-3.6; Units: NG/ML; Status: F Test: MB/CK RELATIVE INDEX; Value: 1.64; Range: < OR =4; Status: F Test: TROPONIN I; Value: 0.18; Range: < 0.10; Abnormal: High; Units: NG/ML; Status: F Test Note: ; DIAGNOSIS CRITERIA MMB ng/ml Relative Index (RI) NON-AMI < or = 5 N/A RIOJAS ZONE > 5 < or = 4 AMI > 5 > 4 Lab Order: BASIC METABOLIC PROFILE; [facility] 03/06/16 05:35 Test: GLUCOSE, FASTING; Value: 113; Range: 70-105; Abnormal: Above high normal; Units: MG/DL; Status: F Test: BLOOD UREA NITROGEN; Value: 17; Range: 7-18; Units: MG/DL; Status: F Test: CREATININE FOR GFR; Value: 0.70; Range: 0.55-1.02; Units: MG/DL; Status: F Test: SODIUM LEVEL; Range: 136-145; Units: MEQ/L; Status: I Test: POTASSIUM SERUM; Range: 3.5-5.1; Units: MEQ/L; Status: I Test: CHLORIDE LEVEL; Range: 98-107; Units: MEQ/L; Status: I Test: CARBON DIOXIDE LEVEL; Range: 21-32; Units: MEQ/L; Status: I Test: ANION GAP; Range: 8-16; Units: MEQ/L; Status: I Test: CALCIUM LEVEL; Range: 8.5-10.1; Units: MG/DL; Status: I Test: GLOMERULAR FILTRATION RATE; Value: > 60.0; Range: >51; Status: F Test: SODIUM LEVEL; Value: 139; Range: 136-145; Units: MEQ/L; Status: F Test: POTASSIUM SERUM; Value: 4.1; Range: 3.5-5.1; Units: MEQ/L; Status: F Test: CHLORIDE LEVEL; Value: 108; Range: 98-107; Abnormal: Above high normal; Units: MEQ/L; Status: F Test: CARBON DIOXIDE LEVEL; Value: 20; Range: 21-32; Abnormal: Below low normal; Units: MEQ/L; Status: F Test: ANION GAP; Value: 11; Range: 8-16; Units: MEQ/L; Status: F Test: CALCIUM LEVEL; Value: 7.8; Range: 8.5-10.1; Abnormal: Below low normal; Units: MG/DL; Status: F Test Note: ; Units are mL/min/1.73 m2 Chronic Kidney Disease Staging per NKF: Stage I & II GFR >=60 Normal to Mildly Decreased Stage III GFR 30-59 Moderately Decreased Stage IV GFR 15-29 Severely Decreased Stage V GFR <15 Very Little GFR Left ESRD GFR <15 on TURNING MACHINE OPERATOR HELPER Outcome: 13:30 Decision to Hospitalize by Provider. fg 03/06 14:46 Patient left the ED. [facility] Signatures: Jesús Truong, RN RN Laura Gamez, RN RN Noah Deutsch, Reg Reg lg Pat Lucero RN RN hs1 Mian, Patsy, RN RN sls1 Massiel Moon,RN RN Evette Giron, RELOCATION MANAGER RELOCATION MANAGER Colton Kaur RN RN jmb Dunaway, EmilyRN RN Kelechi Jurado, RELOCATION MANAGER RELOCATION MANAGER Ozzie Bourne rn1 Chey Keene MD MD fg Redder, Kathie klr Becker, Brittney, RELOCATION MANAGER RELOCATION MANAGER juliannab Chart Complete MTDKena
--- NOTE | 2016-03-30 10:28 | DSES ---
DATE OF ADMISSION: 03/05/2016 DATE OF DISCHARGE: 03/07/2016 CONSULTANTS DURING THIS ADMISSION: Dr. Chris Nobles, mechanical maintenance foreman PRIMARY DISCHARGE DIAGNOSES: 1. Supraventricular tachycardia (SVT). 2. 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 3. Chronic thrombocytopenia secondary to liver disease. 4. Esophageal varices. DISCHARGE MEDICATIONS: - albuterol ProAir 108 mcg by actuation two puffs inhaled routinely every 4 hours as needed for shortness of breath - Symbicort 160/4.5 two puffs twice a day - calcium/vitamin D 500/200 one tablet twice a day - Lasix 20 daily - Singulair 10 mg nightly - nadolol 40 mg nightly - Protonix 40 mg daily - prednisone 15 mg daily - rifaximin 550 mg twice a day - spironolactone 50 mg daily HOSPITAL DISCHARGE INSTRUCTIONS: The patient to have followup with primary care physician within 1 week of discharge. Hold Lasix, spironolactone, nadolol if blood pressure is low, systolic pressure less than 120. HOSPITAL COURSE: This is a 56-year-old female with history of liver cirrhosis secondary to autoimmune hepatitis and chronic hepatitis C, chronic thrombocytopenia secondary to end-stage liver disease, asthma, esophageal varices, reflux disease, hypertension, cholecystectomy, tonsillectomy, sphenoidectomy, tubal ligation, liver biopsy, esophageal fluid mass collection and biopsy, presented to the emergency room (ER) with complaints of palpitations , found to have SVT, treated with adenosine, and was admitted for observation and rate control. The patient was monitored on telemetry for 24 hours. An echocardiogram was ordered. Dr. Chris Nobles was consulted for SVT and abnormal serum troponin. The patient had rate of 148, blood pressure of 84/65, saturations of 92% on room air. She received 1 liter of normal saline. Was saturating 92% in room air and received another 1 liter of normal saline, 60 mg of intravenous (IV) atacand, and converted the patient to normal sinus rhythm, and troponin which was abnormal at less than 0.02, then up to 0.15, 0.3, and 0.26, with the latest at 0.18. Thyroid-stimulating hormone (TSH) was normal at 2.2, and serum brain natriuretic peptide (BNP) was 56. Chest x-ray showed cardiomegaly, otherwise no heart failure, pleural effusion. The first electrocardiogram (EKG) showed narrow complex SVT with flutter versus SVT with mild intraventricular delay with , sinus rhythm, ventricular rate of 88. EKG on 03/05/2016 showed normal sinus rhythm at 71 with left ventricular hypertrophy (LVH). The patient was instructed by Dr. Nobles to perform valsalva maneuvers if her current episodes occur at home. In view of the abnormal serum troponin and chest pain, she was due to have an outpatient stress test, to be given an appointment to cardiology, [facility], upon discharge. The patient's anemia and pancytopenia secondary to chronic cirrhosis and end-stage renal disease were stable and did not require further intervention. She was to followup with her web press jogger in [place], [place], as well as [place]. Currently, not on transplant list. The patient was discharged in stable condition. LABORATORIES ON DISCHARGE: White count 5.3, hemoglobin 9.7, hematocrit 30, platelet count 78. Sodium 139, potassium 4.1, chloride 108, bicarbonate 20, BUN 17, creatinine 0.7, glucose of 113, troponin 0.18. IMAGING STUDIES: Included a chest x-ray on 03/05/2016, discoid atelectasis left lower lobe, otherwise negative portable chest x-ray. TIME SPENT ON DISCHARGE: 30 minutes. [facility]
== END 2016-03-07 13:25 | disposition home or self-care (01) | DRG 308 ==
LOC: M ED 09:40 → M ED INP 13:51 → M PCU 03-06 14:41
PROVIDERS: ADMIT Internal Medicine; ATTEND General Practice
DX: I47.1 Supraventricular tachycardia (principal); N18.6 End stage renal disease; I12.0 Hypertensive chronic kidney disease with stage 5 chronic kidney disease or end stage renal disease; D69.6 Thrombocytopenia, unspecified; B19.20 Unspecified viral hepatitis C without hepatic coma; Z79.899 Other long term (current) drug therapy; K74.69 Other cirrhosis of liver; J45.909 Unspecified asthma, uncomplicated; K21.9 Gastro-esophageal reflux disease without esophagitis; D63.1 Anemia in chronic kidney disease; Z88.2 Allergy status to sulfonamides

== ENCOUNTER → 2017-01-18 | Outpatient (CLI) | payer OTHER ==
[~2017-01-18] MED LIST changes: +CALC1TAB30 PO; +CETI10TA PO; +KEFL500C17 PO; -KEFL500C7 PO; +NADO40TA PO; -ONDA1TAB15 PO; +ONDA4TAB5 PO; +PRED5TA PO; +PROAAER10 INH; +SPIR50TA2 PO; +SYMB16INH INH
--- NOTE | 2017-01-18 13:43 | REPMRS ---
Patient History The patient states she has not had a clinical breast exam in over a year. Patient is postmenopausal. Family history of unknown cancer in father at age 60. Took hormonal contraceptives for 7 years. Digital Mammo Screening Bilat: January 18, 2017 - Exam #: [id number] Bilateral CC and MLO view(s) were taken. Technologist: Lindsay Barnhart, Technologist Prior study comparison: November 19, 2013, bilateral digital mammo screening bilat performed at [facility]. July 30, 2012, bilateral bilat screen digital mammo, performed at [facility] ([facility]). July 28, 2011, left breast digital mammo diagnostic unilateral performed at [facility]. FINDINGS: There are scattered fibroglandular densities. There has been no change in the appearance of the mammogram from the prior studies. There is a mild amount of scattered fibroglandular density which is fairly symmetric. There is no interval development of dominant mass, architectural distortion, or clustered microcalcification suggestive of malignancy. ASSESSMENT: BI-RADS/ACR category 1 mammogram. Negative. Recommendation Routine screening mammogram in 1 year (for women over age 40). This mammogram was interpreted with the aid of an FDA-approved computer-aided dectection system. Electronically Signed By: Rebel Emerson MD 01/18/17 [id number]
== END ==
LOC: M RAD 11:49
PROVIDERS: ATTEND Internal Medicine
DX: Z12.31 Encounter for screening mammogram for malignant neoplasm of breast (principal); Z78.0 Asymptomatic menopausal state; Z92.0 Personal history of contraception

== ENCOUNTER 2017-01-22 12:18 | Emergency (ER) | payer OTHER ==
[~2017-01-22] VITALS: Ht 149.9 cm; Wt 78.2 kg
[~2017-01-22 12:18] MED LIST changes: -CETI10TA PO
[2017-01-22] MEDS ORDERED: CETI10TA PO (12:26)
[2017-01-22] MEDS ORDERED: ONDANSETRON 4MG/2ML VIAL (J2405) IV ONE ×2 (13:00→15:15)
[2017-01-22] MEDS ORDERED: MORPHINE 4 MG/ML 1ML SYRINGE IV PRN (13:00)
[2017-01-22] MEDS ORDERED: NS 1,000 ML IV ONE ×2 (13:00→17:30)
[2017-01-22 13:18] LABS: BASO % 0.8 % (0.0-1.0); LYMPH # 0.6 10^3/uL (1.5-4.5); MEAN CORPUSCULAR HEMOGLOBIN 27.2 pg (27.0-33.0); MEAN CORPUSCULAR VOLUME 90.7 fl (80.0-96.0); MONO # 0.2 10^3/uL (0.0-0.8); MONO % 8.1 % (0.0-5.0); NEUTROPHILS # 1.6 10^3/uL (1.8-7.7); NEUTROPHILS % 66.1 % (36.0-66.0); RED CELL DISTRIBUTION WIDTH 18.1 % (11.5-14.5); WHITE BLOOD COUNT 2.5 10^3/uL (4.0-10.0)
[2017-01-22] MEDS ORDERED: IPRATROPIUM 0.5MG/ALBUTEROL 2.5MG INH SOL UD 3ML (DUONEB)(J7620) NEB ONE (13:30)
[2017-01-22 13:38] LABS: PLATELET COUNT, AUTOMATED 61 10^3/uL (150-450)
[2017-01-22 13:39] LABS: IMMATURE PLATELET FRACTION % 5.7 % (0.0-9.6); PLATELET F 56
[2017-01-22 13:45] LABS: ALBUMIN 1.9 GM/DL (3.2-5.2); ALBUMIN/GLOBULIN RATIO 0.24 (1.00-1.93); ALKALINE PHOSPHATASE 112 U/L (45-117); ALT/SGPT 37 U/L (12-78); ANION GAP 5 MEQ/L (8-16); AST/SGOT 74 U/L (7-37); BILIRUBIN,TOTAL 1.4 MG/DL (0.2-1.0); BLOOD UREA NITROGEN 10 MG/DL (7-18); CALCIUM LEVEL 7.7 MG/DL (8.5-10.1); CARBON DIOXIDE LEVEL 25 MEQ/L (21-32); CHLORIDE LEVEL 110 MEQ/L (98-107); CREATININE FOR GFR 0.94 MG/DL (0.55-1.02); GLOMERULAR FILTRATION RATE > 60.0 (>51); GLUCOSE, FASTING 127 MG/DL (70-105); POTASSIUM SERUM 3.4 MEQ/L (3.5-5.1); SODIUM LEVEL 140 MEQ/L (136-145); TOTAL PROTEIN 9.9 GM/DL (6.4-8.2)
[2017-01-22] MEDS ORDERED: GASTROGRAFIN SOLUTION 30ML (Q9963) PO ONE ×2 (13:45→14:15)
[2017-01-22 14:12] LABS: BILIRUBIN,DIRECT 0.8 MG/DL (0.0-0.2)
[2017-01-22] MEDS ORDERED: ISOVUE-370 76% 100ML VIAL (Q9967) As Ordered ONE (14:30)
[2017-01-22 14:45] LABS: AMYLASE 90 U/L (25-115)
[2017-01-22 16:44] LABS: MUCUS, URINE RFX SMALL (NEGATIVE); SPECIFIC GRAVITY UR AUTO RFX 1.059 (1.002-1.035); SQUAM EPITHELIAL CELL UR AURFX 3 /HPF (0-6)
[2017-01-22] MEDS ORDERED: METOCLOPRAMIDE INJ 10MG/2ML VIAL (J2765) IV ONE (17:30)
[2017-01-22 18:14] VITALS: BP 110/71
--- NOTE | 2017-01-23 07:23 | REP ---
CT of the abdomen pelvis with IV and oral contrast: Comparison is 12/03/2014. Within the visualized lung chowdary. There is a fixed hiatal hernia. There is abdominal ascites adjacent to the stomach within the hiatal hernia. There is a left lower lobe 3.4 cm mass versus infiltrate. There are no pleural effusions. There is a nodular border of the liver compatible with cirrhosis. There is abdominal ascites surrounding the liver and spleen extending into the colic gutters bilaterally and into the pelvis. This was not present previously. There is splenomegaly. No hepatic or esophageal varices are and identified. There is no recannulation of the umbilical vein. There is portal venous thrombosis at the iman hepatis. This was not present previously. The adrenals and kidneys are unremarkable. The abdominal aorta is unremarkable. There is no bowel distension or obstruction. Pelvis: There is a ascites. The pelvic bowel loops are unremarkable. The uterus, adnexa and bladder are unremarkable. Impression: Cirrhosis and splenomegaly. Portal venous thrombosis. Abdominal ascites. Fixed hiatal hernia. There is ascites within the hiatal hernia. No varices are identified. There is a 14 mm hepatic cyst, unchanged. Infiltrate versus mass in the lower lobe of the left lung. Signed by Drake Craig MD 01/22/2017 03:37 P
== END 2017-01-22 18:19 | disposition short-term general hospital (02) ==
LOC: M ED 12:18
DX: B18.2 Chronic viral hepatitis C (principal); K74.60 Unspecified cirrhosis of liver; R16.1 Splenomegaly, not elsewhere classified; I81 Portal vein thrombosis; R18.8 Other ascites; J45.909 Unspecified asthma, uncomplicated; I85.00 Esophageal varices without bleeding; Z86.718 Personal history of other venous thrombosis and embolism; Z79.899 Other long term (current) drug therapy; Z88.2 Allergy status to sulfonamides; Z91.040 Latex allergy status
CPT/HCPCS: 74177; 80048; 80076; 81001; 82150; 83690; 85025; 85049; 85055; 94640; 96374; 96375; 96376; 99284; J2405; J2765; Q9963; Q9967

== ENCOUNTER 2017-02-27 17:05 | Emergency (ER) | payer OTHER ==
[2017-02-27 18:34] LABS: ANION GAP 7 MEQ/L (8-16); BLOOD UREA NITROGEN 8 MG/DL (7-18); CALCIUM LEVEL 7.8 MG/DL (8.5-10.1); CARBON DIOXIDE LEVEL 28 MEQ/L (21-32); CHLORIDE LEVEL 102 MEQ/L (98-107); GLOMERULAR FILTRATION RATE > 60.0 (>51); GLUCOSE, FASTING 157 MG/DL (70-100); POTASSIUM SERUM 2.7 MEQ/L (3.5-5.1); SODIUM LEVEL 137 MEQ/L (136-145)
[2017-02-27] MEDS: POTASSIUM CHLORIDE 10 MEQ SR TABLET PO ×2 (19:00→20:15)
[2017-02-27] MEDS: KCL 10MEQ IN 100ML SWI (KRUN) 10 MEQ in APPROPRIATE DILUENT 1 EA IV (19:00)
[2017-02-27 19:14] LABS: MAGNESIUM LEVEL 1.6 MG/DL (1.8-2.4)
[2017-02-27] MEDS: MAGNESIUM OXIDE 400 MG TAB (MAG-OX) PO (19:26)
== END 2017-02-27 20:55 | disposition home or self-care (01) ==
LOC: M ED 17:05
DX: E83.42 Hypomagnesemia (principal); E87.6 Hypokalemia; I10 Essential (primary) hypertension; Z86.718 Personal history of other venous thrombosis and embolism; Z86.19 Personal history of other infectious and parasitic diseases
CPT/HCPCS: 83735

== ENCOUNTER 2017-04-06 09:59 | Day surgery (SDC) | payer OTHER ==
[2017-04-06] MEDS: PROPARACAINE 0.5% OPHTH SOL 15ML OD (10:59)
[2017-04-06] MEDS: PHENYLEPHRINE 2.5% OPHTH SOL 2ML OD (10:59)
[2017-04-06] MEDS: TROPICAMIDE 1% OPHTH SOLN 2ML OD (10:59)
[2017-04-06] MEDS: OFLOXACIN 0.3 % (OCUFLOX) OPTH SOL 5ML OD (11:00)
[2017-04-06] MEDS ORDERED: fentaNYL 100 MCG/2 ML INJECTION (J3010) As Ordered (11:32)
[2017-04-06] MEDS ORDERED: MIDAZOLAM INJ 2 MG/2 ML VIAL (J2250) As Ordered (11:32)
[2017-04-06] MEDS: POVIDONE-IODINE 5% OPHTH PREP SOL 30ML As Ordered (11:48)
[2017-04-06] MEDS: BALANCED SALT IRRIGATION SOLUTION 500ML BAG (FOR OR EYE MACHINE) As Ordered (11:52)
[2017-04-06] MEDS: DUOVISC (0.50ML VISCOAT/0.55ML PROVISC) OPHTH KIT As Ordered (12:02)
[2017-04-06] MEDS: CEFUROXIME 1MG/0.1ML INTRACAMERAL INJ As Ordered (12:02)
[2017-04-06] MEDS: LIDOCAINE 0.75%/EPINEPHRINE 0.025% IN BSS 1ML SYR INTRACAMERAL (OR ONLY) As Ordered (12:02)
== END 2017-04-06 12:39 | disposition home or self-care (01) ==
LOC: M SDC 09:59
DX: H25.11 Age-related nuclear cataract, right eye (principal); I10 Essential (primary) hypertension; J44.9 Chronic obstructive pulmonary disease, unspecified; K21.9 Gastro-esophageal reflux disease without esophagitis; G47.30 Sleep apnea, unspecified; R07.89 Other chest pain; Z88.2 Allergy status to sulfonamides; Z91.040 Latex allergy status; Z79.52 Long term (current) use of systemic steroids; Z79.899 Other long term (current) drug therapy
CPT/HCPCS: 66984

== ENCOUNTER → 2017-04-14 | Outpatient (CLI) | payer OTHER ==
[2017-04-14 15:14] LABS: HEMATOCRIT 31.4 % (36.0-47.0); HEMOGLOBIN 9.6 g/dl (12.0-16.0); MEAN CORPUSCULAR HEMOGLOBIN 27.2 pg (27.0-33.0); MEAN CORPUSCULAR HGB CONC 30.6 g/dl (32.0-36.5); RED BLOOD COUNT 3.53 10^6/uL (4.00-5.40); RED CELL DISTRIBUTION WIDTH 18.4 % (11.5-14.5); WHITE BLOOD COUNT 2.4 10^3/uL (4.0-10.0)
[2017-04-14 15:15] LABS: PLATELET COUNT, AUTOMATED 52 10^3/uL (150-450)
[2017-04-14 15:24] LABS: INR 1.48; PROTHROMBIN TIME 18.3 SECONDS (12.4-14.5)
[2017-04-14 15:25] LABS: PARTIAL THROMBOPLASTIN TIME 45.9 SECONDS (26.8-37.9)
[2017-04-14 15:32] LABS: IMMATURE PLATELET FRACTION % 7.4 % (0.0-9.6); PLATELET F 3.8
== END ==
LOC: M LAB 14:07
DX: K70.30 Alcoholic cirrhosis of liver without ascites (principal)

== ENCOUNTER 2017-11-30 09:14 | Day surgery (SDC) | payer OTHER ==
[~2017-11-30 09:14] MED LIST changes: -ADV250INH INH; -ALDA25TA2 PO; -CALC1TAB30 PO; -K-TA10TA2 PO; -KEFL500C17 PO; -LACT20EL PO; -LASI20TA PO; -MECL-68 PO; -MICA40TA PO; +MIDAZOLAM INJ 2 MG/2 ML VIAL (J2250) As Ordered; -MOME50SP; -NADO20TA PO; -NADO40TA PO; -ONDA4TAB5 PO; -PANT40TA2 PO; -PATA2.5S OP; -PRED5TA PO; -PROAAER10 INH; -SING10TA32 PO; -SPIR50TA2 PO; -SYMB16INH INH; -XIFA550T PO; -ZINC220C3 PO; -ZYRT10CA PO; +fentaNYL 100 MCG/2 ML INJECTION (J3010) As Ordered; -magnesium oxide
[2017-11-30] MEDS: PHENYLEPHRINE 2.5% OPHTH SOL 2ML OS (10:12)
[2017-11-30] MEDS: PROPARACAINE 0.5% OPHTH SOL 15ML OS (10:12)
[2017-11-30] MEDS: OFLOXACIN 0.3 % (OCUFLOX) OPTH SOL 5ML OS (10:12)
[2017-11-30] MEDS: TROPICAMIDE 1% OPHTH SOLN 2ML OS (10:13)
[2017-11-30] MEDS ORDERED: ONDANSETRON 4MG/2ML VIAL (J2405) As Ordered (10:44)
[2017-11-30] MEDS: DUOVISC (0.50ML VISCOAT/0.55ML PROVISC) OPHTH KIT As Ordered (11:04)
[2017-11-30] MEDS: BALANCED SALT IRRIGATION SOLUTION 500ML BAG (FOR OR EYE MACHINE) As Ordered (11:04)
[2017-11-30] MEDS: CEFUROXIME 1MG/0.1ML INTRACAMERAL INJ As Ordered (11:04)
[2017-11-30] MEDS: LIDOCAINE 0.75%/EPINEPHRINE 0.025% IN BSS 1ML SYR INTRACAMERAL (OR ONLY) As Ordered (11:04)
== END 2017-11-30 12:10 | disposition home or self-care (01) ==
LOC: M SDC 09:14
DX: H25.12 Age-related nuclear cataract, left eye (principal); K44.9 Diaphragmatic hernia without obstruction or gangrene; K21.9 Gastro-esophageal reflux disease without esophagitis; I10 Essential (primary) hypertension; I73.9 Peripheral vascular disease, unspecified; Z79.899 Other long term (current) drug therapy; G47.30 Sleep apnea, unspecified; Z91.040 Latex allergy status; Z91.013 Allergy to seafood; Z88.2 Allergy status to sulfonamides
CPT/HCPCS: 66984

== ENCOUNTER 2018-01-23 13:47 | Inpatient (IN) | payer OTHER ==
[2018-01-23 14:33] LABS: BASO % 0.2 % (0.0-1.0); HEMATOCRIT 37.6 % (36.0-47.0); HEMOGLOBIN 11.8 g/dl (12.0-15.5); IMMATURE GRANULOCYTE % 0.4 % (0-3.0); LYMPH # 0.8 10^3/uL (1.5-4.5); LYMPH % 16.6 % (24.0-44.0); MEAN CORPUSCULAR HEMOGLOBIN 30.6 pg (27.0-33.0); MEAN CORPUSCULAR HGB CONC 31.4 g/dl (32.0-36.5); MEAN CORPUSCULAR VOLUME 97.4 fl (80.0-96.0); MONO # 0.3 10^3/uL (0.0-0.8); MONO % 6.6 % (0.0-5.0); NEUTROPHILS # 3.5 10^3/uL (1.8-7.7); NEUTROPHILS % 76.2 % (36.0-66.0); RED BLOOD COUNT 3.86 10^6/uL (4.00-5.40); RED CELL DISTRIBUTION WIDTH 19.6 % (11.5-14.5); WHITE BLOOD COUNT 4.6 10^3/uL (4.0-10.0)
[2018-01-23 14:36] LABS: IMMATURE PLATELET FRACTION % 3.7 % (0.0-9.6); PLATELET COUNT, AUTOMATED 73 10^3/uL (150-450); PLATELET F 73
[2018-01-23 14:43] LABS: AMMONIA 113 uMOL/L (<32)
[2018-01-23 14:48] LABS: LACTIC ACID SEPSIS PROTOCOL 2.6 MMOL/L (0.4-2.0)
[2018-01-23 14:49] LABS: ACETAMINOPHEN LEVEL < 2.0 UG/ML (10.0-30.0); ALBUMIN 2.2 GM/DL (3.2-5.2); ALBUMIN/GLOBULIN RATIO 0.36 (1.00-1.93); ALKALINE PHOSPHATASE 116 U/L (45-117); ALT/SGPT 59 U/L (12-78); ANION GAP 6 MEQ/L (8-16); AST/SGOT 101 U/L (7-37); BILIRUBIN,DIRECT 2.5 MG/DL (0.0-0.2); BILIRUBIN,TOTAL 4.5 MG/DL (0.2-1.0); BLOOD UREA NITROGEN 15 MG/DL (7-18); CALCIUM LEVEL 7.8 MG/DL (8.5-10.1); CARBON DIOXIDE LEVEL 25 MEQ/L (21-32); CHLORIDE LEVEL 99 MEQ/L (98-107); CPK CREATINE PHOSPHOKINASE 117 U/L (26-192); ETHYL ALCOHOL (ETHANOL) 0.004 % (0.000-0.010); GLOMERULAR FILTRATION RATE 54.3 (>51); GLUCOSE, FASTING 217 MG/DL (70-100); MB/CK RELATIVE INDEX 1.11 (< OR =4); POTASSIUM SERUM 4.4 MEQ/L (3.5-5.1); SALICYLATE LEVEL < 1.7 MG/DL (5.0-30.0); SODIUM LEVEL 130 MEQ/L (136-145); TOTAL PROTEIN 8.3 GM/DL (6.4-8.2); TROPONIN I < 0.02 NG/ML (< 0.10)
[2018-01-23 14:59] LABS: BEDSIDE GLUCOSE 194 MG/DL (70-105)
[2018-01-23] MEDS: NS 1,000 ML IV (14:59)
[2018-01-23] MEDS: LACTULOSE 20 GM/30 ML SYRUP UD PO ×3 (15:19→21:30)
[2018-01-23 16:48] LABS: KETONE, URINE AUTO RFX NEGATIVE (NEGATIVE); LEUKOCYTE ESTERASE UR AUTO RFX NEGATIVE (NEGATIVE); MUCUS, URINE RFX SMALL (NEGATIVE); NITRITE, URINE AUTO RFX NEGATIVE (NEGATIVE); RBC, URINE AUTO RFX 0 /HPF (0-3); SPECIFIC GRAVITY UR AUTO RFX 1.004 (1.002-1.035); SQUAM EPITHELIAL CELL UR AURFX 0 /HPF (0-6); WBC, URINE AUTO RFX 0 /HPF (0-3)
[2018-01-23 16:57] LABS: INR 1.46; PROTHROMBIN TIME 17.9 SECONDS (12.1-14.4)
[2018-01-23 17:12] LABS: AMPHETAMINES LEVEL URINE NEGATIVE (NEGATIVE); BARBITURATES URINE NEGATIVE (NEGATIVE); BENZODIAZEPINES URINE NEGATIVE (NEGATIVE); CANNABINOIDS URINE NEGATIVE (NEGATIVE); COCAINE METABOLITE URINE NEGATIVE (NEGATIVE); METHADONE URINE NEGATIVE (NEGATIVE); OPIATES URINE NEGATIVE (NEGATIVE); PHENCYCLIDINE URINE NEGATIVE (NEGATIVE)
[2018-01-23 17:31] LABS: ESTIMATED AVERAGE GLUCOSE 126 MG/DL (60-110)
[2018-01-23] MEDS: IPRATROPIUM 0.5MG/ALBUTEROL 2.5MG INH SOL UD 3ML (DUONEB)(J7620) NEB (20:59)
[2018-01-23] MEDS: NADOLOL 20MG TABLET PO (21:00)
[2018-01-23] MEDS ORDERED: SYMBICORT 160/4.5MCG INHALER 6GM INH (21:00)
[2018-01-23] MEDS: CETIRIZINE (ZyrTEC) 10 MG TAB PO (21:22)
[2018-01-23] MEDS: methylPREDNISolone INJ 125 MG/2 ML VIAL (J2930) IV (21:22)
[2018-01-23] MEDS: MONTELUKAST 10 MG TAB PO (21:22)
[2018-01-23] MEDS: rifAXIMin 550 MG TAB (XIFAXAN) PO (21:23)
[2018-01-23] MEDS: FERROUS SULFATE 300MG/5ML UDC LIQUID PO (22:48)
[2018-01-24] MEDS: NS 1,000 ML IV ×2 (00:12→09:27)
[2018-01-24 06:46] LABS: HEMATOCRIT 35.2 % (36.0-47.0); HEMOGLOBIN 10.7 g/dl (12.0-15.5); MEAN CORPUSCULAR HGB CONC 30.4 g/dl (32.0-36.5); RED BLOOD COUNT 3.45 10^6/uL (4.00-5.40); RED CELL DISTRIBUTION WIDTH 19.7 % (11.5-14.5); WHITE BLOOD COUNT 3.4 10^3/uL (4.0-10.0)
[2018-01-24 06:51] LABS: AMMONIA 52 uMOL/L (<32)
[2018-01-24 07:13] LABS: PLATELET COUNT, AUTOMATED 39 10^3/uL (150-450)
[2018-01-24 07:19] LABS: ALBUMIN 1.8 GM/DL (3.2-5.2); ALBUMIN/GLOBULIN RATIO 0.31 (1.00-1.93); ALKALINE PHOSPHATASE 99 U/L (45-117); ALT/SGPT 52 U/L (12-78); ANION GAP 8 MEQ/L (8-16); AST/SGOT 81 U/L (7-37); BILIRUBIN,TOTAL 3.4 MG/DL (0.2-1.0); BLOOD UREA NITROGEN 16 MG/DL (7-18); CALCIUM LEVEL 7.2 MG/DL (8.5-10.1); CARBON DIOXIDE LEVEL 21 MEQ/L (21-32); CHLORIDE LEVEL 105 MEQ/L (98-107); CREATININE FOR GFR 0.88 MG/DL (0.55-1.30); GLOMERULAR FILTRATION RATE > 60.0 (>51); GLUCOSE, FASTING 137 MG/DL (70-100); POTASSIUM SERUM 4.9 MEQ/L (3.5-5.1); SODIUM LEVEL 134 MEQ/L (136-145); TOTAL PROTEIN 7.6 GM/DL (6.4-8.2)
[2018-01-24] MEDS: SPIRONOLACTONE 25 MG TAB PO (08:38)
[2018-01-24] MEDS: predniSONE 10 MG TAB PO (08:38)
[2018-01-24] MEDS: PANTOPRAZOLE 40MG TAB (PROTONIX) PO (08:39)
[2018-01-24] MEDS: FUROSEMIDE 20 MG TAB PO (08:39)
[2018-01-24] MEDS: rifAXIMin 550 MG TAB (XIFAXAN) PO (08:39)
[2018-01-24] MEDS: LACTULOSE 20 GM/30 ML SYRUP UD PO (08:39)
[2018-01-24] MEDS: FOLIC ACID 1 MG TAB PO (08:39)
[2018-01-24] MEDS: PYRIDOXINE 50 MG TAB PO (08:39)
[2018-01-24] MEDS: FLUBLOK(EGG FREE)(QUAD)INFLUENZA VACC 0.5ML SYRINGE (90682)18YRS&OLDER IM (10:31)
[2018-01-25] MEDS ORDERED: FLUBLOK(EGG FREE)(QUAD)INFLUENZA VACC 0.5ML SYRINGE (90682)18YRS&OLDER IM (09:00)
== END 2018-01-24 14:54 | disposition home or self-care (01) | DRG 71 ==
LOC: M ED 13:47 → M ED INP 16:48
DX: G93.41 Metabolic encephalopathy (principal); I85.10 Secondary esophageal varices without bleeding; K72.90 Hepatic failure, unspecified without coma; K75.4 Autoimmune hepatitis; J45.909 Unspecified asthma, uncomplicated; D69.59 Other secondary thrombocytopenia; R41.82 Altered mental status, unspecified; K74.60 Unspecified cirrhosis of liver; I10 Essential (primary) hypertension; K21.9 Gastro-esophageal reflux disease without esophagitis; Z90.49 Acquired absence of other specified parts of digestive tract; Z91.14 Patient's other noncompliance with medication regimen; Z79.52 Long term (current) use of systemic steroids; Z79.899 Other long term (current) drug therapy; Z88.2 Allergy status to sulfonamides; Z88.8 Allergy status to other drugs, medicaments and biological substances; Z91.040 Latex allergy status; Z91.013 Allergy to seafood

== ENCOUNTER → 2018-02-08 | Outpatient (CLI) | payer OTHER ==
[~2018-02-08] MED LIST changes: +ADV250INH INH; +ALDA25TA2 PO; +CALC1TAB30 PO; +CETI10TA PO; +FOLI800C PO; +K-TA10TA2 PO; +K-TA1TAB PO; +KEFL500C17 PO; +LACT10SO3 PO; +LACT20EL PO; +LASI20TA3 PO; +MAGN400C2 PO; +MECL-68 PO; +MICA40TA PO; -MIDAZOLAM INJ 2 MG/2 ML VIAL (J2250) As Ordered; +MOME50SP; +NADO20TA PO; +NADO40TA PO; +ONDA4TAB5 PO; +PANT40TA3 PO; +PATA2.5S OP; +PRED10PA PO; +PRED10TA2 PO; +PRED5TA PO; +PROAAER10 INH; +PYRI25TA4 PO; +SING10TA32 PO; +SLOW160T8 PO; +SPIR-10 PO; +SPIR100T3 PO; +SPIR50TA4 PO; +SYMB16INH INH; +XIFA550T PO; +ZINC220C3 PO; +ZYRT10CA PO; -fentaNYL 100 MCG/2 ML INJECTION (J3010) As Ordered; +magnesium oxide
== END ==
LOC: M INFU 08:00
PROVIDERS: ATTEND Specialist
DX: D61.818 Other pancytopenia (principal)

== ENCOUNTER 2018-02-10 14:07 | Emergency (ER) | payer OTHER ==
[~2018-02-10] VITALS: Ht 147.3 cm; Wt 72.7 kg
[~2018-02-10 14:07] MED LIST changes: -SPIR100T3 PO
[2018-02-10] MEDS ORDERED: SPIR100T3 PO (14:23)
[2018-02-10 14:46] LABS: BASO % 0.1 % (0.0-1.0); HEMATOCRIT 37.4 % (36.0-47.0); HEMOGLOBIN 11.8 g/dl (12.0-15.5); LYMPH # 1.1 10^3/uL (1.5-4.5); LYMPH % 16.2 % (24.0-44.0); MEAN CORPUSCULAR HEMOGLOBIN 29.9 pg (27.0-33.0); MEAN CORPUSCULAR HGB CONC 31.6 g/dl (32.0-36.5); MEAN CORPUSCULAR VOLUME 94.9 fl (80.0-96.0); MONO # 0.3 10^3/uL (0.0-0.8); MONO % 4.3 % (0.0-5.0); NEUTROPHILS # 5.5 10^3/uL (1.8-7.7); NEUTROPHILS % 78.7 % (36.0-66.0); RED BLOOD COUNT 3.94 10^6/uL (4.00-5.40)
[2018-02-10 14:52] LABS: PLATELET COUNT, AUTOMATED 68 10^3/uL (150-450)
[2018-02-10 15:03] LABS: PARTIAL THROMBOPLASTIN TIME 44.6 SECONDS (25.4-37.6)
[2018-02-10 15:07] LABS: BILIRUBIN,DIRECT 3.5 MG/DL (0.0-0.2); BILIRUBIN,TOTAL 6.1 MG/DL (0.2-1.0); CALCIUM LEVEL 8.8 MG/DL (8.5-10.1); CREATININE FOR GFR 1.25 MG/DL (0.55-1.30); GLOMERULAR FILTRATION RATE 46.9 (>51); MB/CK RELATIVE INDEX 6.19 (< OR =4); POTASSIUM SERUM 4.7 MEQ/L (3.5-5.1); TOTAL PROTEIN 8.4 GM/DL (6.4-8.2); TROPONIN I 0.04 NG/ML (< 0.10)
[2018-02-10 15:09] LABS: INR 1.74; PROTHROMBIN TIME 20.7 SECONDS (12.1-14.4)
[2018-02-10] MEDS ORDERED: PANTOPRAZOLE SODIUM 40 MG in D5W 50 ML IV SCH (15:45)
[2018-02-10] MEDS ORDERED: PANTOPRAZOLE 40MG INJ (PROTONIX) (C9113) IV ONE (15:45)
--- NOTE | 2018-02-10 16:08 | REP ---
Chest one-view HISTORY: Shortness of breath Comparison: 03/05/2016 The lungs are clear. The heart is normal in size. The pulmonary vasculature is normal in appearance. Impression: No acute disease. Electronically Signed by Gabino Healy MD 02/10/2018 04:00 P
[2018-02-10] MEDS ORDERED: NS 1,000 ML IV SCH (17:10)
[2018-02-10 19:23] VITALS: BP 109/61
--- NOTE | 2018-02-11 05:58 | ECGEPIP ---
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
== END 2018-02-10 19:25 | disposition short-term general hospital (02) ==
LOC: M ED 14:07
DX: K92.2 Gastrointestinal hemorrhage, unspecified (principal); K85.90 Acute pancreatitis without necrosis or infection, unspecified; E72.20 Disorder of urea cycle metabolism, unspecified; R06.02 Shortness of breath; I10 Essential (primary) hypertension; K21.9 Gastro-esophageal reflux disease without esophagitis; J45.909 Unspecified asthma, uncomplicated; I47.1 Supraventricular tachycardia; I85.00 Esophageal varices without bleeding; B19.20 Unspecified viral hepatitis C without hepatic coma; K74.60 Unspecified cirrhosis of liver; D69.6 Thrombocytopenia, unspecified; Z88.8 Allergy status to other drugs, medicaments and biological substances; Z88.2 Allergy status to sulfonamides; Z91.013 Allergy to seafood; Z91.040 Latex allergy status; Z79.899 Other long term (current) drug therapy; Z79.51 Long term (current) use of inhaled steroids; Z79.52 Long term (current) use of systemic steroids
CPT/HCPCS: 71045; 80048; 80076; 82140; 82550; 82553; 83690; 84484; 85025; 85049; 85055; 85610; 85730; 86850; 86870; 86900; 86901; 93005; 93041; 96374; 99285; C9113